=== PATIENT | female | born 1940 | race African-American/Black ===

== ENCOUNTER 2020-04-22 23:01 | IRF | payer MEDICARE, SELFPAY ==
--- NOTE | 2020-04-22 19:33 | ADMGEN ---
This patient, Joaquina Erazo, was admitted to [facility] Room 226-02. Patient/family oriented to hospital policies and general routines including ID bracelet, bed and alarms, visiting hours, pain management, procedures, bathroom and other care routines, personal items, smoking policy, room service/diet, and visiting hours. Valuables list has been completed. Information on how to activate the Rapid Response Team has been discussed. Patient/Family are encouraged to report perceived risks to care and to ask questions if they do not understand what they are told or what they should do.
[2020-04-22 23:05] VITALS: BP 185/55; PULSE 79; RESP 12; TEMP 36.1; O2SAT 96
[2020-04-22] MEDS: PRAVASTATIN SODIUM 20 MG TABLET PO (23:35)
[2020-04-22] MEDS: hydrALAZINE HCL 50 MG TABLET PO (23:36)
[2020-04-22] MEDS: TIMOLOL MALEATE 0.5% OP SOLN 5 ML BOTTLE 1 DROP RIGHT EYE (23:39)
[2020-04-22] MEDS: PANTOPRAZOLE 40 MG TABLET PO (23:39)
[2020-04-22] MEDS: HEPARIN SODIUM 5,000 UNITS/ML VIAL 5000 UNITS SUB-Q (23:50)
[2020-04-22] MEDS: amLODIPine BESYLATE 2.5 MG TABLET PO (23:51)
[2020-04-22] MEDS: CALCIUM ACETATE 667 MG TABLET 1334 MG PO (23:51)
[2020-04-23] VITALS (23 sets, daily range): BP systolic 82–161; BP diastolic 30–69; PULSE 69–77; RESP 16–18; TEMP 36–36.6; O2SAT 97–100; BMI 34.4
[2020-04-23 00:08] LABS: Prothrombin Time 12.5 Seconds (11.1-14.7)
[2020-04-23] MEDS: MELATONIN 3 MG TABLET PO ×2 (00:30→23:29)
[2020-04-23 00:31] LABS: Glucose Point of Care 172 (65-105)
[2020-04-23 05:36] LABS: Basophils Percent Auto 0.6 % (0.2-1.2); Eosinophils Absolute Auto 0.4 K/mm3 (0-0.3); Eosinophils Percent Auto 4.9 % (0-4.4); Hematocrit 26.9 % (37.0-47.0); Hemoglobin 8.9 g/dL (12.0-15.0); Immature Granulocyte Absolute 0.03 K/mm3 (0.00-0.031); Immature Granulocyte Percent A 0.4 % (0-0.5); Lymphocytes Absolute Auto 1.81 K/mm3 (0.9-3.2); Lymphocytes Percent Auto 25.1 % (18.3-44.2); Mean Corpuscular HGB Conc 33.1 g/dl (32-36); Mean Corpuscular Hemoglobin 31.4 pg (26-34); Mean Corpuscular Volume 95.1 fl (80-100); Mean Platelet Volume 9.5 fl (7.4-10.4); Monocytes Absolute Auto 0.9 K/mm3 (0.1-0.6); Monocytes Percent Auto 12.9 % (2.6-8.5); Neutrophils Absolute Auto 4.1 K/mm3 (1.3-6.7); Neutrophils Percent Auto 56.1 % (45.5-73.1); Platelet Count Result 214 k/mm3 (150-375); Red Blood Count 2.83 M/mm3 (4.2-5.4); Red Cell Distribution Width 13.9 % (11.5-14.5); White Blood Count 7.2 K/mm3 (4.5-10.0)
[2020-04-23 05:42] LABS: Anion Gap 7 mmol/L (8-16); Blood Urea Nitrogen 38 mg/dL (7-17); Calcium 8.5 mg/dL (8.4-10.2); Carbon Dioxide 31 mmol/L (22-30); Chloride 93 mmol/L (98-107); Estimated CRCL calculation 7 ml/min; Estimated Glomerular Filt Rate 6; Glucose 147 mg/dL (65-105); Sodium 131 mmol/L (137-145)
[2020-04-23 06:48] LABS: Glucose Point of Care 150 (65-105)
[2020-04-23] MEDS: BETHANECHOL CHLORIDE 10 MG TABLET PO (06:50)
--- NOTE | 2020-04-23 08:12 | PM.CNNEP ---
Assessment and Plan Assessment and plan (1) End stage renal disease: Code(s): N18.6 - End stage renal disease Status: Acute Assessment and Plan: the patient has end-stage renal disease. She is due for dialysis today. We will take 2L off. potassium is 5 so we will use a 2 K bath. Bicarbonate level looks okay. (2) Essential (primary) hypertension: Code(s): I10 - Essential (primary) hypertension Status: Acute Assessment and Plan: The patient has hypertension. She is on hydralazine and amlodipine. Her blood pressure is on the high side. We will see how it looks after dialysis when we take some fluid off. (3) Diabetes mellitus with nephropathy: Code(s): E11.21 - Type 2 diabetes mellitus with diabetic nephropathy Status: Acute Assessment and Plan: She is on Accu-Cheks. (4) Atrial fibrillation: Code(s): I48.91 - Unspecified atrial fibrillation Status: Acute Assessment and Plan: Her heart rate is well controlled. (5) TIA (transient ischemic attack): Code(s): G45.9 - Transient cerebral ischemic attack, unspecified Status: Acute Assessment and Plan: No recent events. (6) Hyperlipidemia: Code(s): E78.5 - Hyperlipidemia, unspecified Status: Acute Assessment and Plan: She is on pravastatin (7) Erythropoietin deficiency anemia: Code(s): D63.1 - Anemia in chronic kidney disease Status: Acute Assessment and Plan: we will give her Epogen and check iron studies History of Present Illness Reason for Consult Consult date: 04/23/20 Chief Complaint Chief complaint: Right Pubic Rami Fracture History of Present Illness Narrative: Joaquina is a very pleasant 79-year-old lady who has end-stage renal disease. The patient actually lives in [place] but she has been visiting her daughter in [address] [place] [address] to get away from the COVID virus down there. She was going to a dialysis clinic There as well. she was coming out of the clinic in fell. She was taken over to [facility]. She was there for 10 days. She had a pelvic fracture. She was in need of rehab by the end of the hospital stay so she came to [place] in patient rehab for dialysis, physical therapy and occupational therapy. The patient still has some pain in her pelvis but she is able to walk and get up and down from a chair. The patient has been on dialysis for about 8 years. Her treatments generally go pretty well. She usually gets about 2L off each treatment. She does use heparin on her dialysis. She has never been on peritoneal dialysis or had a kidney transplant. The patient's end-stage renal disease is due to diabetes and hypertension. The patient has diabetes. She has had this for many years. She does have retinopathy. She has no vision in the left eye. She has retinopathy in the right eye as well and is getting injections for that she says. Her blood sugars are generally pretty well controlled at 150 or less. The patient has hypertension for many years as well. She had a TIA 2 years ago. She recovered function completely and has not had a stroke. The patient has a pacemaker. She does not have any stents. No history of myocardial infarction. No CABG. The patient has atrial fibrillation. She is on warfarin for this. She has hyperlipidemia and is on pravastatin. The patient has no allergies. She does not smoke or drink. Review of Systems Constitutional: Constitutional: Reports no additional constitutional complaints Eyes: Eyes: Reports no additional eye complaints ENT: Reports system reviewed and no additional complaints, except as documented Cardiovascular: Cardiovascular: Reports no additional cardiovascular complaints Respiratory: Respiratory: Reports no additional respiratory complaints Gastrointestinal: Gastrointestinal: Reports no additional gastro
[2020-04-23] MEDS: CALCIUM ACETATE 667 MG TABLET 1334 MG PO ×2 (10:01→17:30)
[2020-04-23] MEDS: CHOLECALCIFEROL 1,000 UNITS TABLET 5000 UNITS PO (10:02)
[2020-04-23] MEDS: amLODIPine BESYLATE 2.5 MG TABLET PO ×2 (10:02→17:30)
[2020-04-23] MEDS: hydrALAZINE HCL 50 MG TABLET PO ×2 (10:03→17:30)
[2020-04-23] MEDS: CLOPIDOGREL BISULFATE 75 MG TABLET PO (10:03)
[2020-04-23] MEDS: lisinopriL 10 MG TABLET PO (10:03)
[2020-04-23] MEDS: HEPARIN SODIUM 5,000 UNITS/ML VIAL 5000 UNITS SUB-Q ×2 (10:03→23:29)
[2020-04-23] MEDS: VITAMIN B CMPLX/VIT C/FOLIC AC 1 CAPSULE 1 CAP PO (10:04)
[2020-04-23] MEDS: TIMOLOL MALEATE 0.5% OP SOLN 5 ML BOTTLE 1 DROP RIGHT EYE ×2 (10:04→17:30)
--- NOTE | 2020-04-23 13:46 | WPDREHABHP ---
H&P: HPI History of Present Illness Date/Time: 04/23/20 13:46 Chief complaint: Right Pelvis Fracture Narrative: Joaquina Erazo is a 79 year old femaleHISTORY OF PRESENT ILLNESS: The patient's primary rehab impairment category is orthopedic that his lower extremity fracture The etiologic diagnosis is etiological diagnosis is right pubic rami fracture I saw this patient [id number] on April 23, 2020 at 1:00 p.m. 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 She fell onto her right hip and experienced immediate pain. Imaging demonstrated right superior and inferior rami and acetabular fracture. Orthopedic surgery was consulted and they opted for non operative management. The patient will be nonweightbearing to the right lower extremity for at least 4 weeks. Hospitalization has been significant for acute pain, uncontrollable diabetes mellitus type 2 with hypoglycemia, end-stage renal disease on hemodialysis, hypotension and hypertension. Pain is being controlled with oral analgesics and adjusted as necessary, diabetes is being managed with NovoLog and is being adjusted as warranted, she is receiving dialysis on and hypertension or hypotension is being managed with amlodipine, lisinopril, and hydralazine and adjusted as needed she is requiring physical and occupation therapy for slide board transfer ADLs and functional mobility with the wheelchair level bold at present she will be anticoagulated with warfarin that has been bridged from heparin the patient has not traveled outside the [place] or had contact with someone was ill that this traveled outside the [place] in the past 21 days patient has no travel to an area of the [place] there is experiencing known transmission of the Coronavirus and has not had close personal contact with anyone that has the patient does not have a fever is not experiencing any lower respiratory illness symptoms therapy has initiated at the acute care facility and the patient has been transferred to us from [facility] on April 22, 2020 Therapy was initiated at the acute care facility and the patient transferred to us from [[facility]] on [] FALLS OR SURGERIES: The patient has had [no] major surgeries in the 100 days prior to admission. They had [no] falls in the past year. They had [no] falls with injury in the past year. PAST MEDICAL HISTORY: past medical history is consistent with congestive heart failure diabetes mellitus hypertension and end-stage renal disease for which she is on hemodialysis left eye blindness and osteomyelitis past surgical history is consistent with pacemaker amputation of 3 to 5 left toes hypertension and end-stage renal disease for which she is on hemodialysis requiring dialysis catheter insertion SOCIAL HISTORY: patient usually lives with her daughter but is here visiting her knees from [place]. Her niece's home with a 2 story with 2 steps to enter. The patient is staying with the [facility] level. She was completely independent previously with a Rollator walker. She will return to her niece home following rehabilitation where she will receive assistance from her knees. Patient has had 1 fall dizzier and it resulted in this hospitalization admission no major surgery in the past 100 days. She will continue dialysis after discharge at [facility] in [facility] on Monday and routine she is not a smoker noted alcohol drinker or drug abuse social history the patient lives in with her daughterral Care was
--- NOTE | 2020-04-23 15:35 | PCCCNOTE ---
On 04/23/20, the student, [Luke Ken ], provided care and completed [facility] documentation on this patient. I have reviewed the student's documentation and agree with the findings.
[2020-04-23] MEDS: WARFARIN (*PBKC) 5 MG TABLET PO (17:31)
[2020-04-23 19:09] LABS: Iron 49 ug/dL (37-170)
[2020-04-23 19:18] LABS: Percent Iron Saturation 33 % (20-50)
[2020-04-23 19:41] LABS: Hepatitis B Surface Antigen Negative (Negative)
[2020-04-23 20:01] LABS: Hepatitis B Surface Anti Res Positive
[2020-04-23 20:07] LABS: Glucose Point of Care 155 (65-105)
[2020-04-23] MEDS: PANTOPRAZOLE 40 MG TABLET PO (23:29)
[2020-04-23] MEDS: PRAVASTATIN SODIUM 20 MG TABLET PO (23:29)
[2020-04-24 05:07] LABS: Albumin Level 3.2 g/dL (3.5-5.1); Anion Gap 6 mmol/L (8-16); Blood Urea Nitrogen 21 mg/dL (7-17); Calcium 7.8 mg/dL (8.4-10.2); Carbon Dioxide 31 mmol/L (22-30); Chloride 95 mmol/L (98-107); Estimated CRCL calculation 11 ml/min; Estimated Glomerular Filt Rate 11; Glucose 164 mg/dL (65-105); Phosphorus 2.9 mg/dL (2.5-4.5); Potassium 5.1 mmol/L (3.4-5.0); Sodium 132 mmol/L (137-145)
[2020-04-24 05:27] VITALS: BP 124/49; PULSE 68; RESP 18; TEMP 36.3; O2SAT 100
[2020-04-24] MEDS: BETHANECHOL CHLORIDE 10 MG TABLET PO (05:35)
[2020-04-24 07:02] LABS: Glucose Point of Care 173 (65-105)
[2020-04-24 08:00] VITALS: PULSE 68; RESP 18; O2SAT 100
[2020-04-24] MEDS: lisinopriL 10 MG TABLET PO (09:44)
[2020-04-24] MEDS: HEPARIN SODIUM 5,000 UNITS/ML VIAL 5000 UNITS SUB-Q ×2 (09:44→20:45)
[2020-04-24] MEDS: TIMOLOL MALEATE 0.5% OP SOLN 5 ML BOTTLE 1 DROP RIGHT EYE ×2 (09:44→16:26)
[2020-04-24] MEDS: CALCIUM ACETATE 667 MG TABLET 1334 MG PO ×2 (09:44→16:26)
[2020-04-24] MEDS: CHOLECALCIFEROL 1,000 UNITS TABLET 5000 UNITS PO (09:44)
[2020-04-24] MEDS: amLODIPine BESYLATE 2.5 MG TABLET PO ×2 (09:44→16:26)
[2020-04-24] MEDS: CLOPIDOGREL BISULFATE 75 MG TABLET PO (09:44)
[2020-04-24] MEDS: VITAMIN B CMPLX/VIT C/FOLIC AC 1 CAPSULE 1 CAP PO (09:44)
[2020-04-24] MEDS: hydrALAZINE HCL 50 MG TABLET PO ×2 (09:45→16:27)
--- NOTE | 2020-04-24 13:21 | RPD ---
INDIVIDUALIZED PLAN OF CARE FOR Joaquina Erazo Brief Synthesis of Pre-Admission Screen, Post-Admission Evaluation and Therapy Evaluations: The patient presents to rehab with right pubic rami fracture. Comorbidities include closed on-displaced fracture of the anterior column of the right acetabulum, end-stage renal disease on hemodialysis, acute pain, anemia, uncontrolled diabetes mellitus with hypoglycemia, uncontrolled hypertension, hypotension. The patient requires physician services for medical oversight, management medical complications in setting of present comorbidities, end-stage renal disease and hemodialysis treatments, and pain management. She will be followed at least three times a week by the rehabilitation physician. Orthopedics may see the patient at the frequency of their discretion. Labs will be drawn to monitor blood counts and electrolytes periodically. The patient requires nursing services for DVT prophylactics, infection protection, medication management and education, and pressure relief. Deficits include:ADLs, Balance, Endurance, Family Training/Education, Mobility, Pain Management, ROM, Safety, Strength,Transfers. Clinical Laboratory Scientist/Case Management for: Discharge Planning and Patient/Family Counseling Physical Therapy: 5 days per week for 90 minutes. Treatments may include: Therapeutic Exercise, Gait Training, Neuromuscular Re-education, Transfer Training, Community Reintegration, Bed Mobility, Patient/Family Education, Wheelchair Mobility Group Therapy/Concurrent Therapy Rationales: -Improve attention span during functional activities in a distracted environment. -Enhance problem solving and/or adequate judgment skills during functional activities in a distracted environment. -Promote increased safety awareness in a distracted environment to reduce fall risk with functional tasks, transfers, and ambulation to allow a more safe, self-sufficient return to the home environment. -Improve dynamic balance skills to promote safety and independence with functional activities in a distracted environment for maximum gain. Occupational Therapy: 5 days per week for 90 minutes. Treatments may include: Therapeutic Exercise, Therapeutic Activity, Cognitive Training, Self-Care Transfer Training, Community Reintegration, Home Management, Patient/Family Education, Wheelchair Mobility Training, Energy Conservation Training Group Therapy/Concurrent Therapy Rationales: -Allow therapist to observe and teach generalization and carry-over of skills learned in individual therapy. -Enhance problem solving and sequencing skills during therapeutic activities in a distracted environment. -Promote increased safety awareness in a realistic setting to reduce fall risk with functional tasks due to visual and verbal distractions. -Increase functional level with ADLs, ADL transfers and use of adaptive equipment through therapeutic activities with others while promoting safety to allow a more safe, self-sufficient return home. Medical Prognosis: Good Anticipated Length of Stay: 16 days Rehab Goals: Eating Goal: 06-Independent Oral Hygiene Goal: 06-Independent Toileting Hygiene Goal: 04-Supervision or Touching Assistance Shower/Bathe Self Goal: 04-Supervision or Touching Assistance Upper Body Dressing Goal: 06-Independent Lower Body Dressing Goal: 04-Supervision or Touching Assistance Putting On/Taking Off Footwear Goal: 05-Setup or Clean Up Assistance Rolling Left and Right Goal: 06-Independent Sit to Lying Goal: 06-Independent Lying to Sitting on Side of Bed Goal: 06-Independent Sit to Stand Goal: 03-Partial/Moderate Assistance Chair/Eeq-kn-Zyomk Transfer Goal: 06-Independent Toilet Transfer Goal: 04-Supervision or Touching Assistance Car Transfer Goal: 04-Supervision or Touching Assistance Walk 10' Goal: 09-Not Applicable Walk 50' with Two Turns Goal: 09-Not Applicable Walk 150' Goal: 09-Not Applicable Walk 10' on Uneven Surface Goal: 09-Not Applicable 1 S
--- NOTE | 2020-04-24 13:45 | PCCCNOTE ---
On 04/24/20, the student, [Luke Ken ], provided care and completed [facility] documentation on this patient. I have reviewed the student's documentation and agree with the findings.
[2020-04-24 14:00] VITALS: BP 161/69; PULSE 70; RESP 17; TEMP 36.2; O2SAT 98
--- NOTE | 2020-04-24 14:40 | WPDNEURORHBP ---
Subjective Date/time seen: 79 years old lady admitted to the rehab floor with a right pubic rami fracture in addition to the comorbid conditions of congestive heart failure hypertension end-stage renal disease for which she is on hemodialysis diabetes mellitus left eye blindness amputation of left-sided 3 to 5 toes and now continues to complain of right-sided pain04/24/20 14:40 Review of Systems Review of Systems: Narrative: reviewed no changes except as mentioned in the admission history and physical examination Functional Status Transfers Ability Ability to Transfer In/Out of Chair: Standby Assistance Exam Narrative: Exam Narrative: awake alert cooperative in no obvious acute distress not dysphasic no dysarthric no dysphonic heart regular with no murmur lungs clear with no rhonchi or crepitation abdomen is soft with no organomegaly neurological examination is stable and unchanged plantars are downgoing examination of the lower extremities unchanged Objective Data Vital Signs Vital Signs: Vital Signs - 24 hr 04/23/20 17:56 04/23/20 18:05 04/23/20 18:15 Temperature 36.6 C Pulse Rate 72 72 Pulse Rate [Apical] Respiratory Rate Blood Pressure 161/69 H 103/55 L Pulse Oximetry 04/23/20 18:30 04/23/20 18:45 04/23/20 19:00 Temperature Pulse Rate 71 72 72 Pulse Rate [Apical] Respiratory Rate Blood Pressure 89/39 L 121/30 L 97/44 L Pulse Oximetry 04/23/20 19:15 04/23/20 19:30 04/23/20 19:35 Temperature Pulse Rate 72 71 70 Pulse Rate [Apical] Respiratory Rate Blood Pressure 118/57 L 82/35 L 140/41 L Pulse Oximetry 04/23/20 19:45 04/23/20 19:50 04/23/20 19:54 Temperature Pulse Rate 70 69 Pulse Rate [Apical] Respiratory Rate Blood Pressure 140/41 L 84/43 L 107/52 L Pulse Oximetry 04/23/20 20:00 04/23/20 20:15 04/23/20 20:30 Temperature Pulse Rate 71 71 Pulse Rate [Apical] Respiratory Rate Blood Pressure 116/51 L 89/44 L 97/45 L Pulse Oximetry 04/23/20 20:45 04/23/20 21:00 04/23/20 21:15 Temperature Pulse Rate 72 70 69 Pulse Rate [Apical] Respiratory Rate Blood Pressure 121/54 L 120/60 123/58 L Pulse Oximetry 04/23/20 21:30 04/23/20 21:50 04/23/20 22:00 Temperature 36.4 C L Pulse Rate 76 72 77 Pulse Rate [Apical] 70 Respiratory Rate 18 18 Blood Pressure 127/59 L 135/60 148/55 H Pulse Oximetry 97 04/24/20 05:27 04/24/20 08:00 Temperature 36.3 C L Pulse Rate 68 68 Pulse Rate [Apical] Respiratory Rate 18 18 Blood Pressure 124/49 L Pulse Oximetry 100 100 Intake/Output Intake/Output: Intake & Output 04/21/20 04/22/20 04/23/20 04/24/20 23:59 23:59 23:59 23:59 Intake Total 720 580 Balance 720 580 Meds/Results Medications: Active Medications Generic Name Dose Route Start Last Admin Trade Name Freq PRN Reason Stop Dose Admin Hydrocodone Bitart/Acetaminophen 1 tab 04/22/20 23:15 04/23/20 17:35 Squire 5-325 Mg PO 1 tab Q4H PRN Administration Pain Rated 4-6 Hydrocodone Bitart/Acetaminophen 2 tab 04/22/20 23:15 04/24/20 09:46 Squire 5-325 Mg PO 2 tab Q6H PRN Administration Pain Rated 7-10 Amlodipine Besylate 2.5 mg 04/22/20 23:15 04/24/20 09:44 Norvasc PO 2.5 mg BID CLOVIS Administration Bethanechol Chloride 10 mg 04/23/20 06:30 04/24/20 05:35 Urecholine PO 10 mg DAILY@0630 CLOVIS Administration Calcium Acetate 1,334 mg 04/22/20 23:15 04/24/20 09:44 Phoslo PO 1,334 mg BIDWM CLOVIS Administration Clopidogrel Bisulfate 75 mg 04/23/20 09:00 04/24/20 09:44 Plavix PO 75 mg DAILY CLOVIS Administration Dextrose 12.5 gm 04/24/20 07:56 Dextrose 50% Syringe IV PUSH PRN PRN Hypoglycemia Protocol Epoetin Nickolas-epbx 10,000 units 04/23/20 09:15 Retacrit IV PUSH TUTHSA CLOVIS Glucagon 1 mg 04/24/20 07:56 Glucagon For Inj IM PRN PRN Hypoglycemia Protocol Glucose 15 gm
[2020-04-24] MEDS: MAGNESIUM HYDROXIDE SUSP 30 ML UDC PO (16:25)
[2020-04-24] MEDS: WARFARIN (*PBKC) 5 MG TABLET PO (16:27)
[2020-04-24 17:20] LABS: Glucose Point of Care 163 (65-105)
[2020-04-24] MEDS: PANTOPRAZOLE 40 MG TABLET PO (20:45)
[2020-04-24] MEDS: PRAVASTATIN SODIUM 20 MG TABLET PO (20:45)
[2020-04-24] MEDS: MELATONIN 3 MG TABLET PO (20:45)
[2020-04-24 21:18] LABS: Glucose Point of Care 195 (65-105)
[2020-04-24 22:00] VITALS: BP 150/60; PULSE 99; RESP 20; TEMP 36.4; O2SAT 100
[2020-04-25] VITALS (20 sets, daily range): BP systolic 111–193; BP diastolic 50–84; PULSE 69–84; RESP 18–20; TEMP 36–36.8; O2SAT 99–100
[2020-04-25 04:52] LABS: Hemoglobin A1C 7.3 % (<5.7)
[2020-04-25] MEDS: BETHANECHOL CHLORIDE 10 MG TABLET PO (05:54)
[2020-04-25 06:27] LABS: Glucose Point of Care 150 (65-105)
[2020-04-25 06:46] LABS: INR 1.1; Prothrombin Time 14.3 Seconds (11.1-14.7)
[2020-04-25] MEDS: CALCIUM ACETATE 667 MG TABLET 1334 MG PO ×2 (09:19→19:52)
[2020-04-25] MEDS: CLOPIDOGREL BISULFATE 75 MG TABLET PO (09:20)
[2020-04-25] MEDS: CHOLECALCIFEROL 1,000 UNITS TABLET 5000 UNITS PO (09:20)
[2020-04-25] MEDS: amLODIPine BESYLATE 2.5 MG TABLET PO ×2 (09:20→19:52)
[2020-04-25] MEDS: HEPARIN SODIUM 5,000 UNITS/ML VIAL 5000 UNITS SUB-Q ×2 (09:20→20:33)
[2020-04-25] MEDS: hydrALAZINE HCL 50 MG TABLET PO ×2 (09:21→19:52)
[2020-04-25] MEDS: lisinopriL 10 MG TABLET PO (09:21)
[2020-04-25] MEDS: TIMOLOL MALEATE 0.5% OP SOLN 5 ML BOTTLE 1 DROP RIGHT EYE ×2 (09:21→19:53)
[2020-04-25] MEDS: VITAMIN B CMPLX/VIT C/FOLIC AC 1 CAPSULE 1 CAP PO (09:22)
--- NOTE | 2020-04-25 12:23 | PM.PNNEP ---
Progress Note: A&P Assessment and Plan (1) End stage renal disease: Code(s): N18.6 - End stage renal disease Status: Chronic Assessment and Plan: HD today and continue T/T/S dialysis schedule follow electrolytes, volume status, and clearance (2) Essential (primary) hypertension: Code(s): I10 - Essential (primary) hypertension Status: Chronic Assessment and Plan: reasonable control at this time continue current medications - titrate PRN versus adding another agent follow trend of hemodynamics (3) Atrial fibrillation: Code(s): I48.91 - Unspecified atrial fibrillation Status: Chronic Assessment and Plan: continue rate control strategy on anticoagulation (4) Pelvic fracture: Code(s): S32.9XXA - Fracture of unspecified parts of lumbosacral spine and pelvis, initial encounter for closed fracture Status: Acute Assessment and Plan: PT/OT/rehab as tolerated pain control (5) Anemia: Code(s): D64.9 - Anemia, unspecified Status: Chronic Assessment and Plan: due to ESRD Epogen with HD adequate iron stores by anemia studies follow trend of H/H (6) Diabetes mellitus with nephropathy: Code(s): E11.21 - Type 2 diabetes mellitus with diabetic nephropathy Status: Chronic Assessment and Plan: follow acchecks on 70/30 insulin Will continue to follow. Subjective Date/time seen: 04/25/20 12:23 Appears to be doing reasonably well today; working with PT/OT as tolerated; no events overnight or earlier this AM; due for dialysis treatment this afternoon. Exam Narrative: Exam Narrative: General: WD/WN AA female in NAD Heart: normal S1 and S2; no rub Lungs: clear to auscultation Abdomen: soft, nontender, nondistended, positive bowel sounds Extremities: no cyanosis or clubbing; no edema Skin: warm and dry Objective Data Vital Signs Vital Signs: Vital Signs Temp Pulse Resp BP Pulse Ox 04/25/20 06:00 36.8 C 74 20 154/60 H 100 04/24/20 22:00 36.4 C 99 20 150/60 H 100 04/24/20 14:00 36.2 C L 70 17 161/69 H 98 Intake/Output Intake/Output: Intake & Output 04/22/20 04/23/20 04/24/20 04/25/20 23:59 23:59 23:59 23:59 Intake Total 720 920 240 Balance 720 920 240 Meds/Results Medications: Active Medications Generic Name Dose Route Start Last Admin Trade Name Freq PRN Reason Stop Dose Admin Hydrocodone Bitart/Acetaminophen 1 tab 04/22/20 23:15 04/23/20 17:35 Libby 5-325 Mg PO 1 tab Q4H PRN Administration Pain Rated 4-6 Hydrocodone Bitart/Acetaminophen 2 tab 04/22/20 23:15 04/25/20 09:27 Libby 5-325 Mg PO 2 tab Q6H PRN Administration Pain Rated 7-10 Amlodipine Besylate 2.5 mg 04/22/20 23:15 04/25/20 09:20 Norvasc PO 2.5 mg BID CLOVIS Administration Bethanechol Chloride 10 mg 04/23/20 06:30 04/25/20 05:54 Urecholine PO 10 mg DAILY@0630 CLOVIS Administration Calcium Acetate 1,334 mg 04/22/20 23:15 04/25/20 09:19 Phoslo PO 1,334 mg BIDWM CLOVIS Administration Clopidogrel Bisulfate 75 mg 04/23/20 09:00 04/25/20 09:20 Plavix PO 75 mg DAILY CLOVIS Administration Dextrose 12.5 gm 04/24/20 07:56 Dextrose 50% Syringe IV PUSH PRN PRN Hypoglycemia Protocol Epoetin Nickolas-epbx 10,000 units 04/23/20 09:15 Retacrit IV PUSH TUTHSA CLOVIS Glucagon 1 mg 04/24/20 07:56 Glucagon For Inj IM PRN PRN Hypoglycemia Protocol Glucose 15 gm 04/24/20 07:56 Glutose 15 PO PRN PRN Hypoglycemia Protocol Heparin Sodium (Porcine) 5,000 units 04/22/20 23:15 04/25/20 09:20 Heparin Sodium SUB-Q 5,000 units Q12HR CLOVIS Administration Hydralazine HCl 50 mg 04/22/20 23:15 04/25/20 09:21 Apresoline Tablet PO 50 mg BID CLOVIS Administration Dextrose 1,000 mls @ 100 mls/hr 04/24/20 07:56 Dextrose 5% 1,000 Ml IVPB PRN PRN
--- NOTE | 2020-04-25 16:50 | WPDNEURORHBP ---
Subjective Date/time seen: 04/25/20 16:50 Interval history: this 79-year-old woman is a dialysis patient who is here for the PT OT Pain Management gait training for the right pubic fracture she is stable pain is controlled working with the rehab and also getting the dialysis denies any headache nausea vomiting chest pain shortness of breath she has been blind in the left eye for quite some time telling me that she has had or at least was told that she had some kind of stroke and left eye it is obvious that she has a right amend the left corneal opacity and dysconjugate left eye movements Review of Systems Review of Systems: All systems reviewed & are unremarkable except as noted in HPI and below Functional Status Transfers Ability Ability to Transfer In/Out of Chair: Standby Assistance Exam Const: General: comfortable and no acute distress HENMT: General nose exam: Normal nares present Mouth: Yes moist mucous membranes Eyes: Other: blindness in the left eye with corneal opacity of longstanding duration and left strabismus Neck: Neck: supple and no JVD Resp: Effort & Inspection: normal respiratory effort Auscultation: clear to auscultation bilaterally Cardio: Other: irregularly irregular rhythm GI: GI Palp: Yes Soft to palpation Auscultation: normal bowel sounds Skin: General skin exam: normal color and no rashes or lesions noted Neuro: Other: patient awake and alert well oriented has generalized weakness lower extremities more so than the upper extremities needing the assistance of all needing assistance in all activities of daily living Extrem: General: normal to inspection Psych: Mental Status: mental status grossly normal Objective Data Vital Signs Vital Signs: Vital Signs - 24 hr 04/24/20 22:00 04/25/20 06:00 04/25/20 14:00 Temperature 36.4 C 36.8 C 36.0 C L Pulse Rate 99 74 73 Pulse Rate [Apical] Respiratory Rate 20 20 18 Blood Pressure 150/60 H 154/60 H 167/68 H Pulse Oximetry 100 100 99 04/25/20 15:46 04/25/20 16:00 04/25/20 16:08 Temperature Pulse Rate 70 70 Pulse Rate [Apical] 70 Respiratory Rate 18 Blood Pressure 193/84 H 173/82 H Pulse Oximetry Intake/Output Intake/Output: Intake & Output 08/19/20 08/20/20 08/21/20 08/22/20 23:59 23:59 23:59 23:59 Intake Total 720 920 580 Balance 720 920 580 Meds/Results Medications: Active Medications Generic Name Dose Route Start Last Admin Trade Name Sageq PRN Reason Stop Dose Admin Hydrocodone Bitart/Acetaminophen 1 tab 04/22/20 23:15 04/23/20 17:35 Prague 5-325 Mg PO 1 tab Q4H PRN Administration Pain Rated 4-6 Hydrocodone Bitart/Acetaminophen 2 tab 04/22/20 23:15 04/25/20 09:27 Prague 5-325 Mg PO 2 tab Q6H PRN Administration Pain Rated 7-10 Amlodipine Besylate 2.5 mg 04/22/20 23:15 04/25/20 09:20 Norvasc PO 2.5 mg BID CLOVIS Administration Bethanechol Chloride 10 mg 04/23/20 06:30 04/25/20 05:54 Urecholine PO 10 mg DAILY@0630 CLOVIS Administration Calcium Acetate 1,334 mg 04/22/20 23:15 04/25/20 09:19 Phoslo PO 1,334 mg BIDWM CLOVIS Administration Clopidogrel Bisulfate 75 mg 04/23/20 09:00 04/25/20 09:20 Plavix PO 75 mg DAILY CLOVIS Administration Dextrose 12.5 gm 04/24/20 07:56 Dextrose 50% Syringe IV PUSH PRN PRN Hypoglycemia Protocol Epoetin Nickolas-epbx 10,000 units 04/23/20 09:15 Retacrit IV PUSH TUTHSA CLOVIS Glucagon 1 mg 04/24/20 07:56 Glucagon For Inj IM PRN PRN Hypoglycemia Protocol Glucose 15 gm 04/24/20 07:56 Glutose 15 PO PRN PRN Hypoglycemia Protocol Heparin Sodium (Porcine) 5,000 units 04/22/20 23:15 04/25/20 09:20 Heparin Sodium SUB-Q 5,000 units Q12HR CLOVIS Administration Hydralazine HCl 50 mg 04/22/20 23:15 04/25/20 09:21 Apresoline Tablet PO 50 mg BID CLOVIS Administration Dextrose 1,000 mls @ 100 mls/hr 04/24/20 07:56 Dex
[2020-04-25] MEDS: EPOETIN ALFA-EPBX 10,000 UNITS/ML VIAL 10000 UNITS IV PUSH (17:15)
--- NOTE | 2020-04-25 18:17 | PC.NURSE ---
April 25, 2020 Notified Coleen Jones RN at 18:00 that patient feels her blood sugar is low. Stated she would be down.
[2020-04-25 18:33] LABS: Glucose Point of Care 121 (65-105)
[2020-04-25] MEDS: WARFARIN (*PBKC) 7.5 MG TABLET PO (19:53)
[2020-04-25] MEDS: MELATONIN 3 MG TABLET PO (20:33)
[2020-04-25] MEDS: PRAVASTATIN SODIUM 20 MG TABLET PO (20:33)
[2020-04-25] MEDS: PANTOPRAZOLE 40 MG TABLET PO (20:33)
[2020-04-26] MEDS: BETHANECHOL CHLORIDE 10 MG TABLET PO (05:23)
[2020-04-26 05:25] LABS: Glucose Point of Care 144 (65-105)
[2020-04-26 06:00] VITALS: BP 136/75; PULSE 80; RESP 18; TEMP 36.8; O2SAT 99
[2020-04-26] MEDS: CALCIUM ACETATE 667 MG TABLET 1334 MG PO ×2 (09:07→18:02)
[2020-04-26] MEDS: VITAMIN B CMPLX/VIT C/FOLIC AC 1 CAPSULE 1 CAP PO (09:08)
[2020-04-26] MEDS: hydrALAZINE HCL 50 MG TABLET PO ×2 (09:08→18:01)
[2020-04-26] MEDS: CHOLECALCIFEROL 1,000 UNITS TABLET 5000 UNITS PO (09:08)
[2020-04-26] MEDS: amLODIPine BESYLATE 2.5 MG TABLET PO ×2 (09:08→18:01)
[2020-04-26] MEDS: lisinopriL 10 MG TABLET PO (09:08)
[2020-04-26] MEDS: CLOPIDOGREL BISULFATE 75 MG TABLET PO (09:08)
[2020-04-26] MEDS: TIMOLOL MALEATE 0.5% OP SOLN 5 ML BOTTLE 1 DROP RIGHT EYE ×2 (09:09→18:02)
[2020-04-26] MEDS: HEPARIN SODIUM 5,000 UNITS/ML VIAL 5000 UNITS SUB-Q ×2 (09:09→20:27)
[2020-04-26 13:06] LABS: INR 1.4; Prothrombin Time 16.8 Seconds (11.1-14.7)
[2020-04-26 14:00] VITALS: BP 144/52; PULSE 74; RESP 18; TEMP 36; O2SAT 100
[2020-04-26 17:02] LABS: Glucose Point of Care 193 (65-105)
[2020-04-26] MEDS: WARFARIN (*PBKC) 7.5 MG TABLET PO (18:02)
--- NOTE | 2020-04-26 18:51 | WPDNEURORHBP ---
Subjective Date/time seen: 04/26/20 18:51 Interval history: this 79-year-old woman is here because of pelvic fracture needing therapy along with the end-stage renal disease history of atrial fibrillation and improving overall state she denies any headache nausea vomiting chest pain shortness of breath fever chills sore throat Review of Systems Review of Systems: All systems reviewed & are unremarkable except as noted in HPI and below Functional Status Transfers Ability Ability to Transfer In/Out of Chair: Standby Assistance Exam Const: General: comfortable and no acute distress HENMT: General nose exam: Normal nares present Mouth: Yes moist mucous membranes Eyes: General: appearance normal, both eyes and all related structures Other: left-sided blindness and corneal obesity Neck: Neck: supple and no JVD Resp: Effort & Inspection: normal respiratory effort Auscultation: clear to auscultation bilaterally Cardio: Other: irregularly irregular rhythm GI: GI Palp: Yes Soft to palpation Auscultation: normal bowel sounds Skin: General skin exam: normal color and no rashes or lesions noted Neuro: Other: patient is awake alert well oriented has left-sided corneal opacity and the blindness making progress in the rehab after sustaining the pelvic fracture Extrem: General: normal to inspection Psych: Mental Status: mental status grossly normal Objective Data Vital Signs Vital Signs: Vital Signs - 24 hr 04/25/20 19:00 04/25/20 19:15 04/25/20 20:06 Temperature 36.3 C L Pulse Rate 82 78 Pulse Rate [Apical] 84 Respiratory Rate 18 Blood Pressure 123/57 L 115/50 L Pulse Oximetry 04/25/20 22:00 04/26/20 06:00 04/26/20 14:00 Temperature 36.4 C L 36.8 C 36.0 C L Pulse Rate 75 80 74 Pulse Rate [Apical] Respiratory Rate 18 18 18 Blood Pressure 182/80 H 136/75 144/52 H Pulse Oximetry 100 99 100 Intake/Output Intake/Output: Intake & Output 04/23/20 04/24/20 04/25/20 04/26/20 23:59 23:59 23:59 23:59 Intake Total 720 367 056 5072 Output Total 150 Balance 720 901 262 5866 Meds/Results Medications: Active Medications Generic Name Dose Route Start Last Admin Trade Name Freq PRN Reason Stop Dose Admin Hydrocodone Bitart/Acetaminophen 1 tab 04/22/20 23:15 04/23/20 17:35 [place] 5-325 Mg PO 1 tab Q4H PRN Administration Pain Rated 4-6 Hydrocodone Bitart/Acetaminophen 2 tab 04/22/20 23:15 04/26/20 14:28 [place] 5-325 Mg PO 2 tab Q6H PRN Administration Pain Rated 7-10 Amlodipine Besylate 2.5 mg 04/22/20 23:15 04/26/20 18:01 Norvasc PO 2.5 mg BID [place] Administration Bethanechol Chloride 10 mg 04/23/20 06:30 04/26/20 05:23 Urecholine PO 10 mg DAILY@0630 [place] Administration Calcium Acetate 1,334 mg 04/22/20 23:15 04/26/20 18:02 Phoslo PO 1,334 mg BIDWM [place] Administration Clopidogrel Bisulfate 75 mg 04/23/20 09:00 04/26/20 09:08 Plavix PO 75 mg DAILY [place] Administration Dextrose 12.5 gm 04/24/20 07:56 Dextrose 50% Syringe IV PUSH PRN PRN Hypoglycemia Protocol Epoetin Nickolas-epbx 10,000 units 04/23/20 09:15 04/25/20 17:15 Retacrit IV PUSH 10,000 units TUTHSA [place] Administration Glucagon 1 mg 04/24/20 07:56 Glucagon For Inj IM PRN PRN Hypoglycemia Protocol Glucose 15 gm 04/24/20 07:56 Glutose 15 PO PRN PRN Hypoglycemia Protocol Heparin Sodium (Porcine) 5,000 units 04/22/20 23:15 04/26/20 09:09 Heparin Sodium SUB-Q 5,000 units Q12HR [place] Administration Hydralazine HCl 50 mg 04/22/20 23:15 04/26/20 18:01 Apresoline Tablet PO 50 mg BID [place] Administration Dextrose 1,000 mls @ 100 mls/hr 04/24/20 07:56 Dextrose 5% 1,000 Ml IVPB PRN PRN Hypoglycemia Protocol Albumin Human 50 mls @ 999 mls/hr 04/25/20 11:05 Albutein IVPB 05/25/20 11:06 Q10M PRN HYPOTENSION Insulin Aspart 5 units 04/23
[2020-04-26] MEDS: PANTOPRAZOLE 40 MG TABLET PO (20:27)
[2020-04-26] MEDS: PRAVASTATIN SODIUM 20 MG TABLET PO (20:27)
[2020-04-26] MEDS: MELATONIN 3 MG TABLET PO (20:27)
[2020-04-26 20:54] VITALS: BP 155/61; PULSE 75; RESP 18; TEMP 35.8; O2SAT 100
[2020-04-27 05:22] VITALS: BP 148/39; PULSE 75; RESP 18; TEMP 36; O2SAT 100
[2020-04-27] MEDS: BETHANECHOL CHLORIDE 10 MG TABLET PO (06:08)
[2020-04-27 06:51] LABS: Glucose Point of Care 156 (65-105)
[2020-04-27 07:36] LABS: INR 1.8; Prothrombin Time 20.4 Seconds (11.1-14.7)
[2020-04-27] MEDS: amLODIPine BESYLATE 2.5 MG TABLET PO ×2 (07:50→17:20)
[2020-04-27] MEDS: CLOPIDOGREL BISULFATE 75 MG TABLET PO (07:50)
[2020-04-27] MEDS: CHOLECALCIFEROL 1,000 UNITS TABLET 5000 UNITS PO (07:50)
[2020-04-27] MEDS: CALCIUM ACETATE 667 MG TABLET 1334 MG PO ×2 (07:51→17:20)
[2020-04-27] MEDS: HEPARIN SODIUM 5,000 UNITS/ML VIAL 5000 UNITS SUB-Q ×2 (07:51→19:57)
[2020-04-27] MEDS: TIMOLOL MALEATE 0.5% OP SOLN 5 ML BOTTLE 1 DROP RIGHT EYE ×2 (07:51→17:20)
[2020-04-27] MEDS: hydrALAZINE HCL 50 MG TABLET PO ×2 (07:51→17:20)
[2020-04-27] MEDS: lisinopriL 10 MG TABLET PO (07:51)
[2020-04-27] MEDS: VITAMIN B CMPLX/VIT C/FOLIC AC 1 CAPSULE 1 CAP PO (07:52)
[2020-04-27 08:00] VITALS: PULSE 74; RESP 18; O2SAT 100
--- NOTE | 2020-04-27 10:58 | WPDNEURORHBP ---
Subjective Date/time seen: 04/27/20 10:58 79 years old lady admitted because of pelvic fractures along with end-stage renal disease atrial fibrillation complains of no headache nausea vomiting chest pain or shortness of breath Review of Systems Review of Systems: All systems reviewed & are unremarkable except as noted in HPI and below Functional Status Transfers Ability Ability to Transfer In/Out of Chair: Standby Assistance Exam Narrative: Exam Narrative: examination reveals her to be awake alert in no obvious acute distress ear nose throat examination normal neck supple with no cervical bruit no thyromegaly no lymphadenopathy no JVD heart regular with no murmur lungs clear to auscultation with no crepitations abdomen is soft with normal bowel sounds skin normal with no rashes neurological examination revealed her to have left corneal opacity with blindness otherwise awake alert exam unchanged Objective Data Vital Signs Vital Signs: Vital Signs - 24 hr 04/26/20 14:00 04/26/20 20:54 04/27/20 05:22 Temperature 36.0 C L 35.8 C L 36.0 C L Pulse Rate 74 75 75 Respiratory Rate 18 18 18 Blood Pressure 144/52 H 155/61 H 148/39 H Pulse Oximetry 100 100 100 04/27/20 08:00 Temperature Pulse Rate 74 Respiratory Rate 18 Blood Pressure Pulse Oximetry 100 Intake/Output Intake/Output: Intake & Output 04/24/20 04/25/20 04/26/20 04/27/20 23:59 23:59 23:59 23:59 Intake Total 671 498 7135 240 Output Total 150 Balance 608 640 9024 240 Meds/Results Medications: Active Medications Generic Name Dose Route Start Last Admin Trade Name Freq PRN Reason Stop Dose Admin Hydrocodone Bitart/Acetaminophen 1 tab 04/22/20 23:15 04/23/20 17:35 [place] 5-325 Mg PO 1 tab Q4H PRN Administration Pain Rated 4-6 Hydrocodone Bitart/Acetaminophen 2 tab 04/22/20 23:15 04/27/20 07:48 [place] 5-325 Mg PO 2 tab Q6H PRN Administration Pain Rated 7-10 Amlodipine Besylate 2.5 mg 04/22/20 23:15 04/27/20 07:50 Norvasc PO 2.5 mg BID [place] Administration Bethanechol Chloride 10 mg 04/23/20 06:30 04/27/20 06:08 Urecholine PO 10 mg DAILY@0630 [place] Administration Calcium Acetate 1,334 mg 04/22/20 23:15 04/27/20 07:51 Phoslo PO 1,334 mg BIDWM [place] Administration Clopidogrel Bisulfate 75 mg 04/23/20 09:00 04/27/20 07:50 Plavix PO 75 mg DAILY [place] Administration Dextrose 12.5 gm 04/24/20 07:56 Dextrose 50% Syringe IV PUSH PRN PRN Hypoglycemia Protocol Epoetin Nickolas-epbx 10,000 units 04/23/20 09:15 04/25/20 17:15 Retacrit IV PUSH 10,000 units TUTHSA [place] Administration Glucagon 1 mg 04/24/20 07:56 Glucagon For Inj IM PRN PRN Hypoglycemia Protocol Glucose 15 gm 04/24/20 07:56 Glutose 15 PO PRN PRN Hypoglycemia Protocol Heparin Sodium (Porcine) 5,000 units 04/22/20 23:15 04/27/20 07:51 Heparin Sodium SUB-Q 5,000 units Q12HR [place] Administration Hydralazine HCl 50 mg 04/22/20 23:15 04/27/20 07:51 Apresoline Tablet PO 50 mg BID [place] Administration Dextrose 1,000 mls @ 100 mls/hr 04/24/20 07:56 Dextrose 5% 1,000 Ml IVPB PRN PRN Hypoglycemia Protocol Albumin Human 50 mls @ 999 mls/hr 04/25/20 11:05 Albutein IVPB 05/25/20 11:06 Q10M PRN HYPOTENSION Insulin Aspart 5 units 04/23/20 08:00 04/27/20 07:52 Novolog Mix 70/30 Vial SUB-Q 5 units DAILY@0800 [place] Administration Lisinopril 10 mg 04/23/20 09:00 04/27/20 07:51 Prinivil PO 10 mg DAILY [place] Administration Magnesium Hydroxide 30 ml 04/24/20 16:06 04/24/20 16:25 Milk Of Magnesia PO 30 ml QAM PRN Administration Constipation Melatonin 3 mg 04/23/20 00:20 04/26/20 20:27 Melatonin PO 3 mg HS [place] Administration Pantoprazole Sodium 40 mg 04/22/20 23:15 04/26/20 20:27 Protonix PO 05/23/20 23:16 40 mg HS [place] Administration Pravastatin Sodium
[2020-04-27 14:00] VITALS: BP 150/55; PULSE 72; RESP 18; TEMP 36; O2SAT 100
[2020-04-27 17:31] LABS: Glucose Point of Care 152 (65-105)
[2020-04-27] MEDS: WARFARIN (*PBKC) 7.5 MG TABLET PO (17:36)
[2020-04-27] MEDS: PRAVASTATIN SODIUM 20 MG TABLET PO (19:57)
[2020-04-27] MEDS: PANTOPRAZOLE 40 MG TABLET PO (19:58)
[2020-04-27 21:02] VITALS: BP 144/51; PULSE 75; RESP 18; TEMP 36.5; O2SAT 100
[2020-04-28] VITALS (22 sets, daily range): BP systolic 106–191; BP diastolic 52–87; PULSE 71–94; RESP 18–20; TEMP 35.9–36.4; O2SAT 100
[2020-04-28] MEDS: BETHANECHOL CHLORIDE 10 MG TABLET PO (06:04)
[2020-04-28 06:26] LABS: Glucose Point of Care 158 (65-105)
[2020-04-28] MEDS: CALCIUM ACETATE 667 MG TABLET 1334 MG PO ×2 (07:40→21:39)
[2020-04-28] MEDS: CLOPIDOGREL BISULFATE 75 MG TABLET PO (08:34)
[2020-04-28] MEDS: VITAMIN B CMPLX/VIT C/FOLIC AC 1 CAPSULE 1 CAP PO (08:34)
[2020-04-28] MEDS: HEPARIN SODIUM 5,000 UNITS/ML VIAL 5000 UNITS SUB-Q ×2 (08:34→21:36)
[2020-04-28] MEDS: hydrALAZINE HCL 50 MG TABLET PO ×2 (08:34→21:38)
[2020-04-28] MEDS: amLODIPine BESYLATE 2.5 MG TABLET PO ×2 (08:34→21:38)
[2020-04-28] MEDS: CHOLECALCIFEROL 1,000 UNITS TABLET 5000 UNITS PO (08:35)
[2020-04-28] MEDS: lisinopriL 10 MG TABLET PO (08:36)
[2020-04-28] MEDS: TIMOLOL MALEATE 0.5% OP SOLN 5 ML BOTTLE 1 DROP RIGHT EYE ×2 (08:36→21:37)
--- NOTE | 2020-04-28 09:36 | PM.PNNEP ---
Progress Note: A&P Assessment and Plan (1) End stage renal disease: Code(s): N18.6 - End stage renal disease Status: Chronic Assessment and Plan: HD today and continue T/T/S dialysis schedule follow electrolytes, volume status, and clearance (2) Essential (primary) hypertension: Code(s): I10 - Essential (primary) hypertension Status: Chronic Assessment and Plan: reasonable control at this time continue current medications - titrate PRN versus adding another agent follow trend of hemodynamics (3) Atrial fibrillation: Code(s): I48.91 - Unspecified atrial fibrillation Status: Chronic Assessment and Plan: continue rate control strategy on anticoagulation (4) Pelvic fracture: Code(s): S32.9XXA - Fracture of unspecified parts of lumbosacral spine and pelvis, initial encounter for closed fracture Status: Acute Assessment and Plan: PT/OT/rehab as tolerated pain control (5) Anemia: Code(s): D64.9 - Anemia, unspecified Status: Chronic Assessment and Plan: due to ESRD Epogen with HD adequate iron stores by anemia studies follow trend of H/H (6) Diabetes mellitus with nephropathy: Code(s): E11.21 - Type 2 diabetes mellitus with diabetic nephropathy Status: Chronic Assessment and Plan: follow acchecks on 70/30 insulin Will continue to follow. Subjective Date/time seen: 04/28/20 09:36 No new issues or problems to report at this time; feels reasonably well and in good spirits; no issues/problems overnight or earlier this AM; working with PT/OT as tolerated. Exam Narrative: Exam Narrative: General: WD/WN AA female in NAD Heart: normal S1 and S2; no rub Lungs: clear to auscultation Abdomen: soft, nontender, nondistended, positive bowel sounds Extremities: no cyanosis or clubbing; no edema Skin: warm and intact Objective Data Vital Signs Vital Signs: Vital Signs Temp Pulse Resp BP Pulse Ox 04/28/20 06:00 36.1 C L 76 18 153/59 H 100 04/27/20 21:02 36.5 C 75 18 144/51 H 100 04/27/20 14:00 36.0 C L 72 18 150/55 H 100 Intake/Output Intake/Output: Intake & Output 04/25/20 04/26/20 04/27/20 04/28/20 23:59 23:59 23:59 23:59 Intake Total 880 1420 1120 340 Output Total 150 Balance 730 1420 1120 340 Meds/Results Medications: Active Medications Generic Name Dose Route Start Last Admin Trade Name Freq PRN Reason Stop Dose Admin Hydrocodone Bitart/Acetaminophen 1 tab 04/22/20 23:15 04/28/20 08:35 [place] 5-325 Mg PO 1 tab Q4H PRN Administration Pain Rated 4-6 Hydrocodone Bitart/Acetaminophen 2 tab 04/22/20 23:15 04/27/20 07:48 [place] 5-325 Mg PO 2 tab Q6H PRN Administration Pain Rated 7-10 Amlodipine Besylate 2.5 mg 04/22/20 23:15 04/28/20 08:34 Norvasc PO 2.5 mg BID [place] Administration Bethanechol Chloride 10 mg 04/23/20 06:30 04/28/20 06:04 Urecholine PO 10 mg DAILY@0630 [place] Administration Calcium Acetate 1,334 mg 04/22/20 23:15 04/28/20 07:40 Phoslo PO 1,334 mg BIDWM [place] Administration Clopidogrel Bisulfate 75 mg 04/23/20 09:00 04/28/20 08:34 Plavix PO 75 mg DAILY [place] Administration Dextrose 12.5 gm 04/24/20 07:56 Dextrose 50% Syringe IV PUSH PRN PRN Hypoglycemia Protocol Epoetin Nickolas-epbx 10,000 units 04/23/20 09:15 04/25/20 17:15 Retacrit IV PUSH 10,000 units TUTHSA [place] Administration Glucagon 1 mg 04/24/20 07:56 Glucagon For Inj IM PRN PRN Hypoglycemia Protocol Glucose 15 gm 04/24/20 07:56 Glutose 15 PO PRN PRN Hypoglycemia Protocol Heparin Sodium (Porcine) 5,000 units 04/22/20 23:15 04/28/20 08:34 Heparin Sodium SUB-Q 5,000 units Q12HR [place] Administration Hydralazine HCl 50 mg 04/22/20 23:15 04/28/20 08:34 Apresoline Tablet PO 50 mg BID [place] Administration D
--- NOTE | 2020-04-28 10:46 | PC.NURSE ---
On 04/29/2020 if patient's INR is between 2-3 discontinue Heparin.
--- NOTE | 2020-04-28 11:15 | PCPTNOTE ---
Joaquina Erazo was evaluated for a slide board on 04/28/2020 by this physical therapist. The slide board will resolve patient's mobility limitations and will be used for ADL's within the home. The patient can safely use the slide board. ?The slide board will resolve the patient?s mobility deficits, including car transfers/ in home transfers. Laura Pierre PT
--- NOTE | 2020-04-28 11:16 | PCPTNOTE ---
Laura Pierre, PT completed an inpatient rehab wheelchair evaluation on Joaquina Erazo on 04/28/2020. The patient is unable to safely and independently ambulate household distances due to their current impairments. Their diagnosis is Right Pelvis Fracture and their impairments include decreased strength, decreased endurance, decreased range of motion, decreased balance, lower extremity weakness, and ataxia. Joaquina's weight bearing status is non weight-bearing on the right lower leg. The patient demonstrates significant functional mobility limitations that impair their ability to participate in mobility-related activities of daily living (MRADLs), including toileting, feeding, dressing, grooming, and bathing in the customary locations in the home. These limitations cannot be sufficiently resolved by the use of an appropriately fitted cane or walker. It is recommended that the patient utilize a wheelchair for functional mobility within the home in order to facilitate optimal safety, independence and participation in all MRADL's and adequately access their home environment on a regular basis. The patient's home provides adequate access between rooms, maneuvering space, and surfaces to accommodate the recommended wheelchair. The use of a wheelchair for functional mobility is strongly recommended and the patient is receptive to using the wheelchair. The use of this wheelchair will significantly improve the patient's ability to participate in MRADLS and the patient will use it on a regular basis in the home. This will facilitate optimal safety, independence, and participation. The patient has demonstrated sufficient physical and mental capabilities needed to safely propel a manual wheelchair that is provided in the home during a typical day. Recommended Wheelchair Frame: standard Recommended Wheelchair Size: 18 x 18 Recommended Wheelchair Cushion:standard Wheelchair Leg Recommendations: elevating detachable legrests - Elevating legrests are recommended because the patient has significant edema of the lower extremities that requires an elevating legrest. - Anti-tippers are recommended due to patient demonstrating increased risk for falls. They would benefit from anti-tippers with added safety and stabilization. __ Laura Pierre PT __04/28/20___ Evaluating Therapist Date I agree with and certify that the above recommendation is medically necessary. Referring Physician Date I agree with and certify that the above recommendation is medically necessary. Referring Physician Date
--- NOTE | 2020-04-28 12:53 | WPDNEURORHBP ---
Subjective Date/time seen: 04/28/20 12:53 Interval history: this 79-year-old woman who is on dialysis is here after having had right-sided pelvic fracture and she is nonweightbearing of the right lower extremity the patient is comfortable with the nonweightbearing status she is on a Coumadin and heparin her INR is 1.8 I plan to discontinue heparin if the an art tomorrow becomes higher than 2 and the she denies any headache nausea vomiting chest pain shortness of breath her left-sided a corneal opacity remains the same it has been longstanding duration Review of Systems Review of Systems: All systems reviewed & are unremarkable except as noted in HPI and below Functional Status Transfers Ability Ability to Transfer In/Out of Chair: Standby Assistance Exam Const: General: comfortable and no acute distress HENMT: General nose exam: Normal nares present Mouth: Yes moist mucous membranes Eyes: Other: 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 is stable and remains the same for longstanding duration Neck: Neck: supple and no JVD Resp: Effort & Inspection: normal respiratory effort Auscultation: clear to auscultation bilaterally Cardio: Rate: regular rate Rhythm: regular rhythm GI: GI Palp: Yes Soft to palpation Auscultation: normal bowel sounds Skin: General skin exam: normal color and no rashes or lesions noted Neuro: Other: patient is awake alert well oriented follows all commands the weakness is related to the pelvic fracture nonweightbearing status of the right lower extremity Extrem: General: normal to inspection Psych: Mental Status: mental status grossly normal Objective Data Vital Signs Vital Signs: Vital Signs - 24 hr 04/27/20 14:00 04/27/20 21:02 04/28/20 06:00 Temperature 36.0 C L 36.5 C 36.1 C L Pulse Rate 72 75 76 Respiratory Rate 18 18 18 Blood Pressure 150/55 H 144/51 H 153/59 H Pulse Oximetry 100 100 100 Intake/Output Intake/Output: Intake & Output 04/25/20 04/26/20 04/27/20 04/28/20 23:59 23:59 23:59 23:59 Intake Total 880 1420 1120 340 Output Total 150 Balance 730 1420 1120 340 Meds/Results Medications: Active Medications Generic Name Dose Route Start Last Admin Trade Name Freq PRN Reason Stop Dose Admin Hydrocodone Bitart/Acetaminophen 1 tab 04/22/20 23:15 04/28/20 12:17 [place] 5-325 Mg PO 1 tab Q4H PRN Administration Pain Rated 4-6 Hydrocodone Bitart/Acetaminophen 2 tab 04/22/20 23:15 04/27/20 07:48 [place] 5-325 Mg PO 2 tab Q6H PRN Administration Pain Rated 7-10 Amlodipine Besylate 2.5 mg 04/22/20 23:15 04/28/20 08:34 Norvasc PO 2.5 mg BID [place] Administration Bethanechol Chloride 10 mg 04/23/20 06:30 04/28/20 06:04 Urecholine PO 10 mg DAILY@0630 [place] Administration Calcium Acetate 1,334 mg 04/22/20 23:15 04/28/20 07:40 Phoslo PO 1,334 mg BIDWM [place] Administration Clopidogrel Bisulfate 75 mg 04/23/20 09:00 04/28/20 08:34 Plavix PO 75 mg DAILY [place] Administration Dextrose 12.5 gm 04/24/20 07:56 Dextrose 50% Syringe IV PUSH PRN PRN Hypoglycemia Protocol Epoetin Nickolas-epbx 10,000 units 04/23/20 09:15 04/25/20 17:15 Retacrit IV PUSH 10,000 units TUTHSA [place] Administration Glucagon 1 mg 04/24/20 07:56 Glucagon For Inj IM PRN PRN Hypoglycemia Protocol Glucose 15 gm 04/24/20 07:56 Glutose 15 PO PRN PRN Hypoglycemia Protocol Heparin Sodium (Porcine) 5,000 units 04/22/20 23:15 04/28/20 08:34 Heparin Sodium SUB-Q 5,000 units Q12HR [place] Administration Hydralazine HCl 50 mg 04/22/20 23:15 04/28/20 08:34 Apresoline Tablet PO 50 mg BID [place] Administration Dextrose 1,000 mls @ 100 mls/hr 04/24/20 07:56 Dextrose 5% 1,000 Ml IVPB PRN PRN Hypoglycemia Protocol Albumin Human 50 mls @ 999 mls/hr 04/25/20 11:05 Albutein IVPB 05/25/20 11:06 Q10M PRN HYPOTENSION
[2020-04-28 17:52] LABS: INR 2.2; Prothrombin Time 23.8 Seconds (11.1-14.7)
[2020-04-28] MEDS: EPOETIN ALFA-EPBX 10,000 UNITS/ML VIAL 10000 UNITS IV PUSH (18:00)
[2020-04-28 19:23] LABS: Glucose Point of Care 127 (65-105)
[2020-04-28] MEDS: WARFARIN (*PBKC) 7.5 MG TABLET PO (21:37)
[2020-04-28] MEDS: MELATONIN 3 MG TABLET PO (21:38)
[2020-04-28] MEDS: PANTOPRAZOLE 40 MG TABLET PO (21:38)
[2020-04-28] MEDS: PRAVASTATIN SODIUM 20 MG TABLET PO (21:39)
[2020-04-29] MEDS: MAGNESIUM CITRATE 300 ML BTL PO (04:56)
[2020-04-29 05:47] VITALS: BP 138/46; PULSE 75; RESP 18; TEMP 36.1; O2SAT 100
[2020-04-29] MEDS: BETHANECHOL CHLORIDE 10 MG TABLET PO (06:05)
[2020-04-29 06:25] LABS: Glucose Point of Care 136 (65-105)
[2020-04-29] MEDS: CALCIUM ACETATE 667 MG TABLET 1334 MG PO ×2 (08:33→17:56)
[2020-04-29] MEDS: CHOLECALCIFEROL 1,000 UNITS TABLET 5000 UNITS PO (08:34)
[2020-04-29] MEDS: amLODIPine BESYLATE 2.5 MG TABLET PO ×2 (08:34→17:56)
[2020-04-29] MEDS: hydrALAZINE HCL 50 MG TABLET PO ×2 (08:36→17:56)
[2020-04-29] MEDS: CLOPIDOGREL BISULFATE 75 MG TABLET PO (08:36)
[2020-04-29] MEDS: TIMOLOL MALEATE 0.5% OP SOLN 5 ML BOTTLE 1 DROP RIGHT EYE ×2 (08:37→17:56)
[2020-04-29] MEDS: lisinopriL 10 MG TABLET PO (08:37)
[2020-04-29] MEDS: VITAMIN B CMPLX/VIT C/FOLIC AC 1 CAPSULE 1 CAP PO (08:37)
[2020-04-29 09:26] LABS: INR 2.1; Prothrombin Time 23.1 Seconds (11.1-14.7)
[2020-04-29 14:00] VITALS: BP 133/49; PULSE 76; RESP 17; TEMP 36.4; O2SAT 97
--- NOTE | 2020-04-29 14:51 | WPDNEURORHBP ---
Subjective Date/time seen: 04/29/20 14:51 Interval history: this pleasant 79-year-old woman is here because of pelvic fracture she is nonweightbearing right lower extremity as per stroke shins from the tertiary care facility she has a history of atrial fibrillation and she is on Coumadin with INR of 2.1 and she is on 7.5 milligram of warfarin daily She is relieved of her constipation and feeling much better she is engage in therapy quite a bit and is tolerating the dialysis well Review of Systems Review of Systems: All systems reviewed & are unremarkable except as noted in HPI and below Functional Status Transfers Ability Ability to Transfer In/Out of Chair: Standby Assistance Exam Const: General: comfortable and no acute distress HENMT: General nose exam: Normal nares present Mouth: Yes moist mucous membranes Eyes: General: appearance normal, both eyes and all related structures Other: left-sided corneal opacity and blindness chronic along standing Neck: Neck: supple and no JVD Resp: Effort & Inspection: normal respiratory effort Auscultation: clear to auscultation bilaterally Cardio: Other: rate controlled atrial fibrillation GI: GI Palp: Yes Soft to palpation Auscultation: normal bowel sounds Skin: General skin exam: normal color and no rashes or lesions noted Neuro: Other: patient is awake alert well oriented time place and person has normal speech and language function making progress in the rehab Extrem: General: normal to inspection Psych: Mental Status: mental status grossly normal Objective Data Vital Signs Vital Signs: Vital Signs - 24 hr 04/28/20 16:42 04/28/20 17:01 04/28/20 17:15 Temperature 36.3 C L Pulse Rate 74 71 73 Respiratory Rate 20 Blood Pressure 191/86 H 181/87 H 161/78 H Pulse Oximetry 04/28/20 17:30 04/28/20 17:45 04/28/20 18:00 Temperature Pulse Rate 74 77 79 Respiratory Rate Blood Pressure 118/67 136/65 124/62 Pulse Oximetry 04/28/20 18:15 04/28/20 18:30 04/28/20 18:45 Temperature Pulse Rate 82 79 78 Respiratory Rate Blood Pressure 124/62 112/57 L 106/54 L Pulse Oximetry 04/28/20 19:00 04/28/20 19:15 04/28/20 19:30 Temperature Pulse Rate 78 94 83 Respiratory Rate Blood Pressure 106/52 L 141/82 H 124/69 Pulse Oximetry 04/28/20 19:45 04/28/20 20:00 04/28/20 20:15 Temperature Pulse Rate 81 74 80 Respiratory Rate Blood Pressure 115/64 114/53 L 122/58 L Pulse Oximetry 04/28/20 20:30 04/28/20 20:34 04/28/20 21:41 Temperature 36.4 C 35.9 C L Pulse Rate 82 85 89 Respiratory Rate 18 18 Blood Pressure 140/70 161/82 H 148/68 H Pulse Oximetry 100 04/29/20 05:47 Temperature 36.1 C L Pulse Rate 75 Respiratory Rate 18 Blood Pressure 138/46 L Pulse Oximetry 100 Intake/Output Intake/Output: Intake & Output 04/26/20 04/27/20 04/28/20 04/29/20 23:59 23:59 23:59 23:59 Intake Total 1420 1120 820 480 Output Total 1000 Balance 1420 1120 -180 480 Meds/Results Medications: Active Medications Generic Name Dose Route Start Last Admin Trade Name Freq PRN Reason Stop Dose Admin Hydrocodone Bitart/Acetaminophen 1 tab 04/22/20 23:15 04/28/20 12:17 [place] 5-325 Mg PO 1 tab Q4H PRN Administration Pain Rated 4-6 Hydrocodone Bitart/Acetaminophen 2 tab 04/22/20 23:15 04/28/20 21:35 [place] 5-325 Mg PO 2 tab Q6H PRN Administration Pain Rated 7-10 Amlodipine Besylate 2.5 mg 04/22/20 23:15 04/29/20 08:34 Norvasc PO 2.5 mg BID [place] Administration Bethanechol Chloride 10 mg 04/23/20 06:30 04/29/20 06:05 Urecholine PO 10 mg DAILY@0630 [place] Administration Calcium Acetate 1,334 mg 04/22/20 23:15 04/29/20 08:33 Phoslo PO 1,334 mg BIDWM [place] Administration Clopidogrel Bisulfate 75 mg 04/23/20 09:00 04/29/20 08:36 Plavix PO 75 mg DAILY [place] Administration Dextrose 12.5 gm 04/24/20 07:56 Dextrose 50% Syringe IV PUSH
[2020-04-29 17:19] LABS: Glucose Point of Care 185 (65-105)
[2020-04-29] MEDS: WARFARIN (*PBKC) 7.5 MG TABLET PO (17:57)
[2020-04-29] MEDS: DOCUSATE SODIUM 100 MG CAPSULE PO (21:45)
[2020-04-29] MEDS: PRAVASTATIN SODIUM 20 MG TABLET PO (21:45)
[2020-04-29] MEDS: MELATONIN 3 MG TABLET PO (21:45)
[2020-04-29] MEDS: PANTOPRAZOLE 40 MG TABLET PO (21:45)
[2020-04-29 22:00] VITALS: BP 160/63; PULSE 83; RESP 18; TEMP 36.1; O2SAT 100
[2020-04-30] VITALS (16 sets, daily range): BP systolic 109–172; BP diastolic 56–74; PULSE 66–75; RESP 18–20; TEMP 36–36.6; O2SAT 97–100
[2020-04-30 05:07] LABS: Basophils Absolute Auto 0.1 K/mm3 (0.0-0.1); Basophils Percent Auto 0.9 % (0.2-1.2); Eosinophils Absolute Auto 0.2 K/mm3 (0-0.3); Eosinophils Percent Auto 2.8 % (0-4.4); Hematocrit 26.2 % (37.0-47.0); Hemoglobin 8.6 g/dL (12.0-15.0); Immature Granulocyte Absolute 0.07 K/mm3 (0.00-0.031); Immature Granulocyte Percent A 0.9 % (0-0.5); Lymphocytes Absolute Auto 1.69 K/mm3 (0.9-3.2); Lymphocytes Percent Auto 22.7 % (18.3-44.2); Mean Corpuscular HGB Conc 32.8 g/dl (32-36); Mean Corpuscular Hemoglobin 32.1 pg (26-34); Mean Corpuscular Volume 97.8 fl (80-100); Mean Platelet Volume 9.2 fl (7.4-10.4); Monocytes Absolute Auto 0.9 K/mm3 (0.1-0.6); Monocytes Percent Auto 11.4 % (2.6-8.5); Neutrophils Absolute Auto 4.6 K/mm3 (1.3-6.7); Neutrophils Percent Auto 61.3 % (45.5-73.1); Nucleated Red Blood Cells Perc 0.4 % (0.0-0.2); Platelet Count Result 413 k/mm3 (150-375); Red Blood Count 2.68 M/mm3 (4.2-5.4); Red Cell Distribution Width 15.2 % (11.5-14.5); White Blood Count 7.4 K/mm3 (4.5-10.0)
[2020-04-30 05:16] LABS: INR 2.5; Prothrombin Time 26.2 Seconds (11.1-14.7)
[2020-04-30 05:27] LABS: Anion Gap 6 mmol/L (8-16); Blood Urea Nitrogen 39 mg/dL (7-17); Calcium 8.4 mg/dL (8.4-10.2); Carbon Dioxide 29 mmol/L (22-30); Chloride 96 mmol/L (98-107); Estimated CRCL calculation 9 ml/min; Estimated Glomerular Filt Rate 9; Glucose 167 mg/dL (65-105); Potassium 5.2 mmol/L (3.4-5.0); Sodium 131 mmol/L (137-145)
[2020-04-30] MEDS: BETHANECHOL CHLORIDE 10 MG TABLET PO (06:15)
[2020-04-30 06:57] LABS: Glucose Point of Care 162 (65-105)
[2020-04-30] MEDS: VITAMIN B CMPLX/VIT C/FOLIC AC 1 CAPSULE 1 CAP PO (09:14)
[2020-04-30] MEDS: lisinopriL 10 MG TABLET PO (09:14)
[2020-04-30] MEDS: hydrALAZINE HCL 50 MG TABLET PO ×2 (09:15→17:00)
[2020-04-30] MEDS: CHOLECALCIFEROL 1,000 UNITS TABLET 5000 UNITS PO (09:15)
[2020-04-30] MEDS: CLOPIDOGREL BISULFATE 75 MG TABLET PO (09:16)
[2020-04-30] MEDS: CALCIUM ACETATE 667 MG TABLET 1334 MG PO ×2 (09:16→16:59)
[2020-04-30] MEDS: amLODIPine BESYLATE 2.5 MG TABLET PO ×2 (09:16→16:59)
[2020-04-30] MEDS: DOCUSATE SODIUM 100 MG CAPSULE PO (09:17)
[2020-04-30] MEDS: TIMOLOL MALEATE 0.5% OP SOLN 5 ML BOTTLE 1 DROP RIGHT EYE ×2 (09:18→17:00)
--- NOTE | 2020-04-30 12:44 | PCDIET ---
Nutrition Follow-Up Complete: Nutrition Diagnosis: Increased protein needs related to increased demands for dialysis as evidenced by patient on hemodialysis. Nutrition Goal: Patient to consume 75% of meals/supplements or greater. Goal met. Patient reports good appetite and is taking Pro-Stat daily for additional 100kcal and 15g protein. No c/o or concerns reported. Last recorded weight is 105.3 kg which is increased from last review. 1L UF on 04/28/20 with plan for dialysis again today. Bowel Motility: BM x 1 on 04/29/20. Labs Reviewed: Hgb (8.6), Hct (26.2), Glu (167), BUN (39), Cr (5.8), K (5.2), Na (131) Meds Noted: [place], Colace, Nephrocaps, Albumin, Retacrit, Vitamin D, Phoslo, Novolog 70/30 Additional Notes: No documented skin breakdown. Will continue to monitor with same goal. Nutrition Monitoring and Evaluation: Follow up every 7 days.
[2020-04-30] MEDS: WARFARIN (*PBKC) 3 MG TABLET 6 MG PO (17:28)
[2020-04-30 17:46] LABS: Glucose Point of Care 216 (65-105)
[2020-04-30] MEDS: EPOETIN ALFA-EPBX 10,000 UNITS/ML VIAL 10000 UNITS IV PUSH (23:23)
[2020-05-01] VITALS (9 sets, daily range): BP systolic 101–153; BP diastolic 38–65; PULSE 66–84; RESP 16–18; TEMP 36.1–36.6; O2SAT 96–99
[2020-05-01] MEDS: MELATONIN 3 MG TABLET PO ×2 (01:32→20:53)
[2020-05-01] MEDS: DOCUSATE SODIUM 100 MG CAPSULE PO ×3 (01:32→20:53)
[2020-05-01] MEDS: PANTOPRAZOLE 40 MG TABLET PO ×2 (01:33→20:53)
[2020-05-01] MEDS: PRAVASTATIN SODIUM 20 MG TABLET PO ×2 (01:35→20:53)
[2020-05-01 05:22] LABS: INR 2.4; Prothrombin Time 25.7 Seconds (11.1-14.7)
[2020-05-01] MEDS: BETHANECHOL CHLORIDE 10 MG TABLET PO (05:32)
[2020-05-01 06:44] LABS: Glucose Point of Care 167 (65-105)
[2020-05-01] MEDS: amLODIPine BESYLATE 2.5 MG TABLET PO ×2 (10:35→18:12)
[2020-05-01] MEDS: CHOLECALCIFEROL 1,000 UNITS TABLET 5000 UNITS PO (10:35)
[2020-05-01] MEDS: CALCIUM ACETATE 667 MG TABLET 1334 MG PO ×2 (10:35→18:13)
[2020-05-01] MEDS: CLOPIDOGREL BISULFATE 75 MG TABLET PO (10:36)
[2020-05-01] MEDS: lisinopriL 10 MG TABLET PO (10:36)
[2020-05-01] MEDS: hydrALAZINE HCL 50 MG TABLET PO ×2 (10:36→18:13)
[2020-05-01] MEDS: TIMOLOL MALEATE 0.5% OP SOLN 5 ML BOTTLE 1 DROP RIGHT EYE ×2 (10:37→18:13)
[2020-05-01] MEDS: VITAMIN B CMPLX/VIT C/FOLIC AC 1 CAPSULE 1 CAP PO (10:37)
--- NOTE | 2020-05-01 14:25 | WPDNEURORHBP ---
Subjective Date/time seen: 05/01/20 14:25 Interval history: this 79-year-old woman is here because of an had the pelvic fracture on the right side and she is nonweightbearing on that side she is doing fairly well making progress her wound on the left to has been seen by the wound care nurse overall she has made progress and continues to try to be independent She denies any headache nausea vomiting chest pain shortness of breath fever chills sore throat Review of Systems Review of Systems: All systems reviewed & are unremarkable except as noted in HPI and below Functional Status Transfers Ability Ability to Transfer In/Out of Chair: Standby Assistance Exam Const: General: comfortable and no acute distress HENMT: General nose exam: Normal nares present Mouth: Yes moist mucous membranes Eyes: General: appearance normal, both eyes and all related structures Other: 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 Neck: Neck: supple and no JVD Resp: Effort & Inspection: normal respiratory effort Auscultation: clear to auscultation bilaterally Cardio: Rate: regular rate Rhythm: regular rhythm GI: GI Palp: Yes Soft to palpation Auscultation: normal bowel sounds Skin: General skin exam: normal color and no rashes or lesions noted Neuro: Other: patient is awake and alert well oriented time place and person she is making progress in the rehab the limitation is the nonweightbearing status of the right lower extremity Extrem: General: normal to inspection Other: callus formation and 1 of the toes Psych: Mental Status: mental status grossly normal Objective Data Vital Signs Vital Signs: Vital Signs - 24 hr 04/30/20 21:03 04/30/20 21:17 04/30/20 21:30 Temperature 36.6 C Pulse Rate 73 72 69 Respiratory Rate 20 Blood Pressure 172/70 H 168/67 H 147/74 H Pulse Oximetry 04/30/20 21:45 04/30/20 22:00 04/30/20 22:15 Temperature 36.2 C L Pulse Rate 66 70 69 Respiratory Rate 20 Blood Pressure 120/63 142/64 H 131/63 Pulse Oximetry 100 04/30/20 22:30 04/30/20 22:45 04/30/20 23:00 Temperature Pulse Rate 67 70 69 Respiratory Rate Blood Pressure 109/56 L 131/64 129/63 Pulse Oximetry 04/30/20 23:15 04/30/20 23:30 04/30/20 23:45 Temperature Pulse Rate 69 70 70 Respiratory Rate Blood Pressure 119/59 L 138/69 130/63 Pulse Oximetry 05/01/20 00:00 05/01/20 00:15 05/01/20 00:30 Temperature Pulse Rate 70 69 70 Respiratory Rate Blood Pressure 117/59 L 125/57 L 112/57 L Pulse Oximetry 05/01/20 00:45 05/01/20 00:47 05/01/20 00:50 Temperature 36.6 C Pulse Rate 68 70 70 Respiratory Rate 18 Blood Pressure 103/54 L 101/51 L 133/65 Pulse Oximetry 05/01/20 05:54 05/01/20 14:00 Temperature 36.1 C L 36.2 C L Pulse Rate 82 84 Respiratory Rate 16 18 Blood Pressure 147/48 H 153/57 H Pulse Oximetry 99 96 Intake/Output Intake/Output: Intake & Output 04/28/20 04/29/20 04/30/20 05/01/20 23:59 23:59 23:59 23:59 Intake Total 820 1320 480 480 Output Total 1000 2000 Balance -180 1320 480 -1520 Meds/Results Medications: Active Medications Generic Name Dose Route Start Last Admin Trade Name Freq PRN Reason Stop Dose Admin Hydrocodone Bitart/Acetaminophen 1 tab 04/22/20 23:15 05/01/20 05:30 Roberta 5-325 Mg PO 1 tab Q4H PRN Administration Pain Rated 4-6 Hydrocodone Bitart/Acetaminophen 2 tab 04/22/20 23:15 04/28/20 21:35 Roberta 5-325 Mg PO 2 tab Q6H PRN Administration Pain Rated 7-10 Amlodipine Besylate 2.5 mg 04/22/20 23:15 05/01/20 10:35 Norvasc PO 2.5 mg BID CLOVIS Administration Bethanechol Chloride 10 mg 04/23/20 06:30 05/01/20 05:32 Urecholine PO 10 mg DAILY@0630 CLOVIS Administration Calcium Acetate 1,334 mg 04/22/20 23:15 05/01/20 10:35 Phoslo PO 1,334 mg BIDWM CLOVIS Administration Clopidogrel Bisulfate 75 mg 04/23/20 09:00 05/01/20 10:36 Plavix PO 75 mg JESUS
[2020-05-01] MEDS: WARFARIN (*PBKC) 3 MG TABLET 6 MG PO (18:13)
[2020-05-02] VITALS (22 sets, daily range): BP systolic 98–180; BP diastolic 48–89; PULSE 70–80; RESP 16–20; TEMP 35.7–37; O2SAT 99–100
[2020-05-02 05:23] LABS: INR 2.9; Prothrombin Time 29.4 Seconds (11.1-14.7)
[2020-05-02] MEDS: BETHANECHOL CHLORIDE 10 MG TABLET PO (06:27)
[2020-05-02 06:52] LABS: Glucose Point of Care 171 (65-105)
[2020-05-02] MEDS: lisinopriL 10 MG TABLET PO (08:13)
[2020-05-02] MEDS: amLODIPine BESYLATE 2.5 MG TABLET PO ×2 (08:13→20:41)
[2020-05-02] MEDS: CHOLECALCIFEROL 1,000 UNITS TABLET 5000 UNITS PO (08:13)
[2020-05-02] MEDS: CLOPIDOGREL BISULFATE 75 MG TABLET PO (08:13)
[2020-05-02] MEDS: CALCIUM ACETATE 667 MG TABLET 1334 MG PO ×2 (08:13→15:59)
[2020-05-02] MEDS: VITAMIN B CMPLX/VIT C/FOLIC AC 1 CAPSULE 1 CAP PO (08:14)
[2020-05-02] MEDS: hydrALAZINE HCL 50 MG TABLET PO ×2 (08:14→20:40)
[2020-05-02] MEDS: DOCUSATE SODIUM 100 MG CAPSULE PO ×2 (08:27→20:39)
[2020-05-02] MEDS: TIMOLOL MALEATE 0.5% OP SOLN 5 ML BOTTLE 1 DROP RIGHT EYE ×2 (08:45→20:39)
--- NOTE | 2020-05-02 16:21 | PC.NURSE ---
To dialysis per bed @ 1619.
--- NOTE | 2020-05-02 17:17 | PM.PNNEP ---
Progress Note: A&P Assessment and Plan (1) End stage renal disease: Code(s): N18.6 - End stage renal disease Status: Chronic Assessment and Plan: HD today and continue T/T/S dialysis schedule follow electrolytes, volume status, and clearance (2) Essential (primary) hypertension: Code(s): I10 - Essential (primary) hypertension Status: Chronic Assessment and Plan: reasonable control at this time continue current medications - titrate PRN versus adding another agent follow trend of hemodynamics (3) Atrial fibrillation: Code(s): I48.91 - Unspecified atrial fibrillation Status: Chronic Assessment and Plan: continue rate control strategy on anticoagulation (4) Pelvic fracture: Code(s): S32.9XXA - Fracture of unspecified parts of lumbosacral spine and pelvis, initial encounter for closed fracture Status: Acute Assessment and Plan: PT/OT/rehab as tolerated pain control (5) Anemia: Code(s): D64.9 - Anemia, unspecified Status: Chronic Assessment and Plan: due to ESRD Epogen with HD adequate iron stores by anemia studies follow trend of H/H (6) Diabetes mellitus with nephropathy: Code(s): E11.21 - Type 2 diabetes mellitus with diabetic nephropathy Status: Chronic Assessment and Plan: follow acchecks on 70/30 insulin Will continue to follow. Subjective Date/time seen: 05/02/20 17:17 Tolerating dialysis at the time of my visit (seen on HD at 5:05PM); no distress apparent when seen; appear comfortable wit no acute complaints voiced; happy about tentative discharge early next week. Exam Narrative: Exam Narrative: General: WD/WN AA female in NAD Heart: normal S1 and S2; no rub Lungs: clear to auscultation Abdomen: soft, nontender, nondistended, positive bowel sounds Extremities: no cyanosis or clubbing; no edema Skin: no rash or nodules Objective Data Vital Signs Vital Signs: Vital Signs Temp Pulse Resp BP Pulse Ox 05/02/20 17:15 77 142/74 H 05/02/20 17:08 35.9 C L 79 16 180/89 H 05/02/20 17:00 74 152/75 H 05/02/20 16:45 73 163/82 H 05/02/20 16:34 78 178/87 H 05/02/20 14:00 35.7 C L 80 20 179/57 H 99 05/02/20 05:29 36.3 C L 70 18 132/48 L 100 05/01/20 20:17 36.5 C 66 18 121/38 L 97 Intake/Output Intake/Output: Intake & Output 04/29/20 04/30/20 05/01/20 05/02/20 23:59 23:59 23:59 23:59 Intake Total 1320 480 480 480 Output Total 1999 Balance 1320 480 -1520 480 Meds/Results Medications: Active Medications Generic Name Dose Route Start Last Admin Trade Name Freq PRN Reason Stop Dose Admin Hydrocodone Bitart/Acetaminophen 1 tab 04/22/20 23:15 05/01/20 05:30 Avera 5-325 Mg PO 1 tab Q4H PRN Administration Pain Rated 4-6 Hydrocodone Bitart/Acetaminophen 2 tab 04/22/20 23:15 05/01/20 14:38 Avera 5-325 Mg PO 2 tab Q6H PRN Administration Pain Rated 7-10 Amlodipine Besylate 2.5 mg 04/22/20 23:15 05/02/20 08:13 Norvasc PO 2.5 mg BID CLOVIS Administration Bethanechol Chloride 10 mg 04/23/20 06:30 05/02/20 06:27 Urecholine PO 10 mg DAILY@0630 CLOVIS Administration Calcium Acetate 1,334 mg 04/22/20 23:15 05/02/20 15:59 Phoslo PO 1,334 mg BIDWM CLOVIS Administration Clopidogrel Bisulfate 75 mg 04/23/20 09:00 05/02/20 08:13 Plavix PO 75 mg DAILY CLOVIS Administration Dextrose 12.5 gm 04/24/20 07:56 Dextrose 50% Syringe IV PUSH PRN PRN Hypoglycemia Protocol Docusate Sodium 100 mg 04/29/20 21:00 05/02/20 08:27 Colace Capsule PO 100 mg Q12HR CLOVIS Administration Epoetin Nickolas-epbx 10,000 units 04/23/20 09:15 04/30/20 23:23 Retacrit IV PUSH 10,000 units TUTHSA CLOVIS Administration Glucagon 1 mg 04/24/20 07:56 Glucagon For Inj IM PRN PRN Hypoglycemia Protocol Glucose 15 gm 04/24/20 07:5
[2020-05-02 18:24] LABS: Glucose Point of Care 146 (65-105)
[2020-05-02] MEDS: EPOETIN ALFA-EPBX 10,000 UNITS/ML VIAL 10000 UNITS IV PUSH (18:35)
[2020-05-02] MEDS: PANTOPRAZOLE 40 MG TABLET PO (20:40)
[2020-05-02] MEDS: PRAVASTATIN SODIUM 20 MG TABLET PO (20:40)
[2020-05-02] MEDS: WARFARIN (*PBKC) 3 MG TABLET 6 MG PO (20:40)
[2020-05-02] MEDS: MELATONIN 3 MG TABLET PO (20:40)
[2020-05-03 05:39] VITALS: BP 144/51; PULSE 70; RESP 18; TEMP 36.3; O2SAT 100
[2020-05-03] MEDS: BETHANECHOL CHLORIDE 10 MG TABLET PO (06:22)
[2020-05-03 06:47] LABS: Glucose Point of Care 147 (65-105)
[2020-05-03 07:45] LABS: INR 2.9; Prothrombin Time 29.8 Seconds (11.1-14.7)
[2020-05-03] MEDS: CALCIUM ACETATE 667 MG TABLET 1334 MG PO ×2 (09:35→17:15)
[2020-05-03] MEDS: amLODIPine BESYLATE 2.5 MG TABLET PO ×2 (09:35→17:15)
[2020-05-03] MEDS: TIMOLOL MALEATE 0.5% OP SOLN 5 ML BOTTLE 1 DROP RIGHT EYE ×2 (09:36→17:17)
[2020-05-03] MEDS: hydrALAZINE HCL 50 MG TABLET PO ×2 (09:36→17:16)
[2020-05-03] MEDS: lisinopriL 10 MG TABLET PO (09:36)
[2020-05-03] MEDS: DOCUSATE SODIUM 100 MG CAPSULE PO ×2 (09:36→21:33)
[2020-05-03] MEDS: VITAMIN B CMPLX/VIT C/FOLIC AC 1 CAPSULE 1 CAP PO (09:36)
[2020-05-03] MEDS: CLOPIDOGREL BISULFATE 75 MG TABLET PO (09:36)
[2020-05-03] MEDS: CHOLECALCIFEROL 1,000 UNITS TABLET 5000 UNITS PO (09:36)
--- NOTE | 2020-05-03 13:00 | WPDNEURORHBP ---
Subjective Date/time seen: 05/03/20 13:00 79 years old lady admitted to the rehab floor with pelvic fracture on the right side which is nonweightbearing at present doing fairly well and extremely involved in the physical therapy and occupational therapy without any other generalized symptomatology Review of Systems Review of Systems: All systems reviewed & are unremarkable except as noted in HPI and below Functional Status Transfers Ability Ability to Transfer In/Out of Chair: Standby Assistance Exam Narrative: Exam Narrative: examination reveals her to be awake alert comfortable in no distress ear nose throat examination normal with no signs of drainage from the nose mouth clear eyes normal neck is supple with normal JVD heart regular with no murmur lungs clear to auscultation abdomen is soft no tenderness normal bowel sounds skin normal neurologically she is awake alert oriented x3 continues to be nonweightbearing but still has no obvious evidence of focal motor deficit extremities are normal he has no evidence of hallucination delusion or depression Objective Data Vital Signs Vital Signs: Vital Signs - 24 hr 05/02/20 14:00 05/02/20 16:34 05/02/20 16:45 Temperature 35.7 C L Pulse Rate 80 78 73 Respiratory Rate 20 Blood Pressure 179/57 H 178/87 H 163/82 H Pulse Oximetry 99 05/02/20 17:00 05/02/20 17:08 05/02/20 17:15 Temperature 35.9 C L Pulse Rate 74 79 77 Respiratory Rate 16 Blood Pressure 152/75 H 180/89 H 142/74 H Pulse Oximetry 05/02/20 17:30 05/02/20 17:45 05/02/20 18:00 Temperature Pulse Rate 78 75 75 Respiratory Rate Blood Pressure 144/73 H 127/63 131/60 Pulse Oximetry 05/02/20 18:15 05/02/20 18:30 05/02/20 18:45 Temperature Pulse Rate 73 78 76 Respiratory Rate Blood Pressure 122/61 123/64 115/58 L Pulse Oximetry 05/02/20 19:00 05/02/20 19:15 05/02/20 19:30 Temperature Pulse Rate 79 74 76 Respiratory Rate Blood Pressure 112/53 L 112/54 L 122/57 L Pulse Oximetry 05/02/20 19:45 05/02/20 20:00 05/02/20 20:05 Temperature Pulse Rate 79 76 76 Respiratory Rate Blood Pressure 111/56 L 102/52 L 98/50 L Pulse Oximetry 05/02/20 20:10 05/02/20 21:43 05/03/20 05:39 Temperature 36.6 C 36.4 C L 36.3 C L Pulse Rate 79 73 70 Respiratory Rate 18 18 18 Blood Pressure 133/65 131/64 144/51 H Pulse Oximetry 100 100 Intake/Output Intake/Output: Intake & Output 04/30/20 05/01/20 05/02/20 05/03/20 23:59 23:59 23:59 23:59 Intake Total 480 480 480 240 Output Total 1999 2099 Balance 423 -9014 -1407 240 Meds/Results Medications: Active Medications Generic Name Dose Route Start Last Admin Trade Name Freq PRN Reason Stop Dose Admin Hydrocodone Bitart/Acetaminophen 1 tab 04/22/20 23:15 05/01/20 05:30 Guy 5-325 Mg PO 1 tab Q4H PRN Administration Pain Rated 4-6 Hydrocodone Bitart/Acetaminophen 2 tab 04/22/20 23:15 05/02/20 20:47 Guy 5-325 Mg PO 2 tab Q6H PRN Administration Pain Rated 7-10 Amlodipine Besylate 2.5 mg 04/22/20 23:15 05/03/20 09:35 Norvasc PO 2.5 mg BID CLOVIS Administration Bethanechol Chloride 10 mg 04/23/20 06:30 05/03/20 06:22 Urecholine PO 10 mg DAILY@0630 CLOVIS Administration Calcium Acetate 1,334 mg 04/22/20 23:15 05/03/20 09:35 Phoslo PO 1,334 mg BIDWM CLOV[facility] Administration Clopidogrel Bisulfate 75 mg 04/23/20 09:00 05/03/20 09:36 Plavix PO 75 mg DAILY CLOVIS Administration Dextrose 12.5 gm 04/24/20 07:56 Dextrose 50% Syringe IV PUSH PRN PRN Hypoglycemia Protocol Docusate Sodium 100 mg 04/29/20 21:00 05/03/20 09:36 Colace Capsule PO 100 mg Q12HR CLOVIS Administration Epoetin Nickolas-epbx 10,000 units 04/23/20 09:15 05/02/20 18:35 Retacrit IV PUSH 10,000 units TUTHSA CLOVIS Administration Glucagon 1 mg 04/24/20 07:56 Glucagon For Inj IM PRN PRN Hypoglycemia Protocol Glucos
[2020-05-03 14:00] VITALS: BP 175/60; PULSE 75; RESP 18; TEMP 35.9; O2SAT 100
[2020-05-03 17:06] LABS: Glucose Point of Care 186 (65-105)
[2020-05-03] MEDS: WARFARIN (*PBKC) 3 MG TABLET 6 MG PO (17:16)
[2020-05-03] MEDS: MELATONIN 3 MG TABLET PO (21:33)
[2020-05-03] MEDS: PRAVASTATIN SODIUM 20 MG TABLET PO (21:34)
[2020-05-03] MEDS: PANTOPRAZOLE 40 MG TABLET PO (21:34)
[2020-05-03 22:00] VITALS: BP 160/70; PULSE 86; RESP 18; TEMP 36.1; O2SAT 100
[2020-05-04] MEDS: BETHANECHOL CHLORIDE 10 MG TABLET PO (05:39)
[2020-05-04] MEDS: amLODIPine BESYLATE 2.5 MG TABLET PO ×2 (05:40→16:48)
[2020-05-04 06:00] VITALS: BP 173/66; PULSE 79; RESP 18; TEMP 36.6; O2SAT 100
[2020-05-04 06:47] LABS: Glucose Point of Care 169 (65-105)
[2020-05-04 06:50] LABS: INR 2.8; Prothrombin Time 28.9 Seconds (11.1-14.7)
[2020-05-04] MEDS: CALCIUM ACETATE 667 MG TABLET 1334 MG PO ×2 (09:40→16:48)
[2020-05-04] MEDS: CLOPIDOGREL BISULFATE 75 MG TABLET PO (09:41)
[2020-05-04] MEDS: DOCUSATE SODIUM 100 MG CAPSULE PO (09:41)
[2020-05-04] MEDS: hydrALAZINE HCL 50 MG TABLET PO ×2 (09:41→16:48)
[2020-05-04] MEDS: VITAMIN B CMPLX/VIT C/FOLIC AC 1 CAPSULE 1 CAP PO (09:41)
[2020-05-04] MEDS: lisinopriL 10 MG TABLET PO (09:41)
[2020-05-04] MEDS: CHOLECALCIFEROL 1,000 UNITS TABLET 5000 UNITS PO (09:41)
[2020-05-04] MEDS: TIMOLOL MALEATE 0.5% OP SOLN 5 ML BOTTLE 1 DROP RIGHT EYE ×2 (09:41→16:49)
[2020-05-04 14:00] VITALS: BP 156/72; PULSE 86; RESP 18; TEMP 36.6; O2SAT 96
[2020-05-04] MEDS: WARFARIN (*PBKC) 3 MG TABLET 6 MG PO (16:48)
--- NOTE | 2020-05-09 14:47 | PM.DS ---
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 Status: Acute (6) Hyperlipidemia: Code(s): E78.5 - Hyperlipidemia, unspecified Status: Acute (7) TIA (transient ischemic attack): Code(s): G45.9 - Transient cerebral ischemic attack, unspecified Status: Acute (8) Atrial fibrillation: Code(s): I48.91 - Unspecified atrial fibrillation Status: Chronic (9) Diabetes mellitus with nephropathy: Code(s): E11.21 - Type 2 diabetes mellitus with diabetic nephropathy Status: Chronic (10) Essential (primary) hypertension: Code(s): I10 - Essential (primary) hypertension Status: Chronic (11) End stage renal disease: Code(s): N18.6 - End stage renal disease Status: Chronic DS: Summary Hospital Course Reason for hospitalization: This pleasant 79-year-old woman is admitted with primary diagnosis of the pelvic fracture and non wearing the and rather nonweightbearing status of the lower extremity with other multiple problems mentioned as above she received the dialysis along with physical therapy of compression therapy and gait training she is from out of town and will be leaving for [place] when she is stabilized at the time of discharge she was doing remarkably well and was able to achieve the following independent measures Hospital Course: eating was independent, oral hygiene independent, toileting independent, bathing supervision, upper body dressing independent, lower body dressing supervision, footwear independent, rolling in bed independent, sitting to lying set up, lying to sitting set up, sit to stand supervision, chair transfers setup, toilet transfers supervision, car transfers set up walking 10 feet 50 feet 150 feet [place] step 4 steps 12 steps not applicable picking of object was partial assistance wheelchair 50 feet independent wheelchair 150 feet independent Time Spent with Patient Time attestation: Total time spent providing and/or coordinating discharge services: Exam Const: General: comfortable and no acute distress HENMT: General nose exam: Normal nares present Mouth: Yes dry mucous membranes Eyes: Other: blindness in the left eye with corneal opacity Neck: Neck: supple and no JVD Resp: Effort & Inspection: normal respiratory effort Auscultation: clear to auscultation bilaterally Cardio: Rate: regular rate Rhythm: regular rhythm GI: GI Palp: Yes Soft to palpation Auscultation: normal bowel sounds Skin: General skin exam: normal color and no rashes or lesions noted Neuro: Other: patient remained awake alert well oriented with normal speech and language functions normal cranial examination and improved his strength both upper lower extremities however Anthony to non weight-bearing status amount of the lower extremity it was difficult to assess the that lower extremity function better Extrem: General: normal to inspection Psych: Mental Status: mental status grossly normal Discharge Plan Discharge Attending physician on discharge: Rik Mobley Consulting providers: Humberto Anaya Discharging Clinician: Jose Todd Anticipated Discharge Date/Time: 05/04/20 10:03 Patient Disposition: Home, Self-Care Activity: as tolerated Diet: renal and low sodium Discharge Instructions: Per Care Co
== END 2020-05-04 17:00 | disposition home health service (06) | DRG 559 ==
PROVIDERS: Internal Medicine Nephrology; Admitting Provider Psychiatry & Neurology Neurology; Visit Provider Psychiatry & Neurology Neurology
DX: S32.591D Other specified fracture of right pubis, subsequent encounter for fracture with routine healing (principal); N18.6 End stage renal disease; I13.2 Hypertensive heart and chronic kidney disease with heart failure and with stage 5 chronic kidney disease, or end stage renal disease; S32.431D Displaced fracture of anterior column [iliopubic] of right acetabulum, subsequent encounter for fracture with routine healing; D63.1 Anemia in chronic kidney disease; E11.22 Type 2 diabetes mellitus with diabetic chronic kidney disease; E11.319 Type 2 diabetes mellitus with unspecified diabetic retinopathy without macular edema; E78.5 Hyperlipidemia, unspecified; E11.65 Type 2 diabetes mellitus with hyperglycemia; H54.7 Unspecified visual loss; I48.91 Unspecified atrial fibrillation; I95.9 Hypotension, unspecified; I50.9 Heart failure, unspecified; Z79.01 Long term (current) use of anticoagulants; Z89.422 Acquired absence of other left toe(s); Z99.2 Dependence on renal dialysis; Z86.73 Personal history of transient ischemic attack (TIA), and cerebral infarction without residual deficits; Z79.4 Long term (current) use of insulin; Z79.02 Long term (current) use of antithrombotics/antiplatelets
CPT/HCPCS: 36415; 80048; 80069; 82728; 83036; 83540; 83550; 85025; 85610; 86706; 87040; 87340; 97110; 97162; 97166; 97530; 97535; 97542; A9270; G0257; J1644; J1815; J7030; Q5106